=== PATIENT | male | born 1970 | race Caucasian/White ===

== ENCOUNTER 2018-01-07 07:47 | Inpatient (IN) | payer OTHER ==
[2018-01-07] VITALS (10 sets, daily range): BP systolic 102; BP diastolic 46; PULSE 52–79; RESP 20; TEMP 101.5; O2SAT 100
[~2018-01-07] VITALS: Ht 177.8 cm; Wt 75.6 kg
[2018-01-07] MEDS ORDERED: DIPHTH/TETANUS/ACEL PERTUSSIS (BOOSTER) 0.5 ML VIAL/PFS IM ONE (07:55)
[2018-01-07] MEDS ORDERED: ceFAZolin 2 GM PREMIX 50 ML ONE (07:55)
[2018-01-07] MEDS ORDERED: PROPOFOL 1000 MG/100 ML INJ 100 ML ONE (08:03)
[2018-01-07] MEDS ORDERED: ROCURONIUM INJ 50 MG/5 ML VIAL ONE ×2 (08:19→10:40)
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
[2018-01-07 08:36] LABS: AUTOMATED NEUTROPHIL # 3.6 TH/MM3 (1.8-7.7); BASOPHIL % 0.3 % (0.0-2.0); EOSINOPHIL # 0.1 TH/MM3 (0-0.4); EOSINOPHIL % 1.1 % (0.0-4.0); HEMOGLOBIN 13.9 GM/DL (13.0-17.0); INTERNATIONAL NORMALIZED RATIO 1.1 RATIO; LYMPH % 23.5 % (9.0-44.0); LYMPHOCYTE # 1.3 TH/MM3 (1.0-4.8); MEAN CELL VOLUME 99.7 FL (80.0-100.0); MEAN CORPUSCULAR HEMOGLOBIN 33.8 PG (27.0-34.0); MEAN CORPUSCULAR HGB CONC 33.9 % (32.0-36.0); MEAN PLATELET VOLUME 10.3 FL (7.0-11.0); MONO % 10.2 % (0.0-8.0); MONOCYTE # 0.6 TH/MM3 (0-0.9); NEUT % 64.9 % (16.0-70.0); PLATELET COUNT 107 TH/MM3 (150-450); PROTHROMBIN TIME - PATIENT 11.3 SEC (9.8-11.6); RED BLOOD COUNT 4.11 MIL/MM3 (4.50-5.90); RED CELL DISTRIBUTION WIDTH 14.1 % (11.6-17.2); WHITE BLOOD COUNT 5.5 TH/MM3 (4.0-11.0)
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
--- NOTE | 2018-01-07 08:44 | RADRPT ---
EXAM DATE/TIME: 01/07/2018 07:47 [facility] COMPARISON: CHEST SINGLE AP, January 07, 2018, 7:47. INDICATIONS : Post intubation. MEDICAL HISTORY : None. SURGICAL HISTORY : None. ENCOUNTER: Initial ACUITY: 1 day PAIN SCORE: Non-responsive. LOCATION: Bilateral chest FINDINGS: Patient has been intubated with ETT at the level of clavicles. Previously noted lucency in the left l tasha base is no longer visualized. Cardiomediastinal contours are within normal limits given portable technique. Moderate gaseous distention of the stomach. Remainder of exam is unchanged. CONCLUSION: 1. ETT in good position. 2. Resolution of lucency in the left lung base consistent with artifact. 3. Moderate gaseous distention of the stomach. Patient may benefit from NG tube decompression. Saroj Carrillo MD on January 07, 2018 at 8:38 Board Certified Radiologist. This report was verified electronically.
[2018-01-07] MEDS ORDERED: IOHEXOL 350 MG/ML 10 ML VIAL (for RAD DIAG) IVCONTRAST ONE (08:49)
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
[2018-01-07] MEDS: PROPOFOL 1000 MG/100 ML IV PRN ×3 (09:30→20:12)
[2018-01-07] MEDS ORDERED: LIDOCAINE 1%/EPINEPHrine 1:100,000 SOLN 30 ML VIAL ONE (09:58)
[2018-01-07] MEDS: NOREPINEPHRINE 4 MG/D5W 250 ML IV PRN ×2 (10:00→20:12)
[2018-01-07] MEDS: fentaNYL 2,500 MCG/NS 250 ML IV PRN (10:00)
[2018-01-07] MEDS ORDERED: NOREPINEPHRINE-DEXTROSE DRIP 0 ML IV ONE (10:17)
[2018-01-07] MEDS ORDERED: CALCIUM GLUCONATE 10% 1 GM/10 ML VIAL ONE (10:29)
[2018-01-07 10:31] LABS: AUTOMATED NEUTROPHIL # 7.7 TH/MM3 (1.8-7.7); BASOPHIL % 0.4 % (0.0-2.0); EOSINOPHIL % 0.2 % (0.0-4.0); HEMATOCRIT 31.1 % (39.0-51.0); HEMOGLOBIN 10.9 GM/DL (13.0-17.0); LYMPH % 6.1 % (9.0-44.0); LYMPHOCYTE # 0.6 TH/MM3 (1.0-4.8); MEAN CELL VOLUME 98.4 FL (80.0-100.0); MEAN CORPUSCULAR HEMOGLOBIN 34.5 PG (27.0-34.0); MEAN PLATELET VOLUME 9.5 FL (7.0-11.0); MONO % 10.2 % (0.0-8.0); MONOCYTE # 0.9 TH/MM3 (0-0.9); NEUT % 83.1 % (16.0-70.0); PLATELET COUNT 72 TH/MM3 (150-450); RED BLOOD COUNT 3.16 MIL/MM3 (4.50-5.90); RED CELL DISTRIBUTION WIDTH 14.5 % (11.6-17.2); WHITE BLOOD COUNT 9.3 TH/MM3 (4.0-11.0)
[2018-01-07 10:44] LABS: INTERNATIONAL NORMALIZED RATIO 1.3 RATIO
[2018-01-07 10:47] LABS: ALBUMIN 2.2 GM/DL (3.4-5.0); BICARBONATE 24.4 MEQ/L (21.0-32.0); CALCIUM 6.6 MG/DL (8.5-10.1); CREATININE 0.61 MG/DL (0.60-1.30)
[2018-01-07 10:52] LABS: CALCIUM-PROTEIN CORRECTED 8.4 MG/DL (8.5-10.1); TOTAL BILIRUBIN ADULT 0.4 MG/DL (0.2-1.0); TOTAL PROTEIN 3.8 GM/DL (6.4-8.2)
[2018-01-07] MEDS ORDERED: SODIUM CHLOR 0.9% 1000 ML INJ 3,000 ML IV STA (11:00)
--- NOTE | 2018-01-07 11:08 | RADRPT ---
EXAM DATE/TIME: 01/07/2018 10:27 [facility] COMPARISON: CHEST SINGLE AP, January 07, 2018, 7:47. INDICATIONS : Post intubation. MEDICAL HISTORY : None. SURGICAL HISTORY : None. ENCOUNTER: Initial ACUITY: 1 day PAIN SCORE: Non-responsive. LOCATION: Bilateral chest FINDINGS: A single portable frontal view of the chest shows interval intubation. The tip of the endotracheal tu be is 3 cm cephalad to the elieser. Nasogastric tube is coiled in the fundus of the stomach. A left th oracostomy tube is observed entering inferiorly and coursing cephalad and medial. The tip projects at the superior left hilar level. No pneumothorax seen on the current study. Minimal atelectasis within the left base. Heart is normal in size. A metallic density projects over the midline. Its is a new f inding. CONCLUSION: Lines and tubes as detailed above. No pneumothorax. Mansoor Elmore Jr., MD on January 07, 2018 at 11:03 Board Certified Radiologist. This report was verified electronically.
[2018-01-07] MEDS ORDERED: NOREPINEPHRINE-DEXTROSE DRIP 250 ML IV ONE ×2 (11:25→12:59)
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
[2018-01-07] MEDS ORDERED: SODIUM CHLOR 0.9% 250 ML INJ 250 ML IV ONE ×2 (12:00→16:00)
[2018-01-07] MEDS ORDERED: PROPOFOL 500 MG/50 ML INJ 50 ML ONE (12:30)
[2018-01-07] MEDS ORDERED: ROCURONIUM INJ 50 MG/5 ML VIAL IV ONE (12:45)
[2018-01-07] MEDS ORDERED: fentaNYL CITRATE 250 MCG/5 ML AMP IV ONE (12:45)
[2018-01-07] MEDS ORDERED: CALCIUM CHLORIDE INJ 1 GM in SODIUM CHLORIDE 0.9% INJ 100 ML IV ONE (13:00)
[2018-01-07] MEDS ORDERED: CALCIUM CHLORIDE 10% SOLN 1 GRAM/10 ML SYR ONE ×2 (13:02)
[2018-01-07] MEDS ORDERED: MAGNESIUM SULFATE 1 GM PREMIX 200 ML ONE (13:32)
[2018-01-07] MEDS: SODIUM CHLOR 0.9% 1000 ML INJ 1,000 ML IV SCH ×2 (14:00→17:00)
[2018-01-07 14:03] LABS: HEMATOCRIT 29.2 % (39.0-51.0); MEAN CELL VOLUME 94.1 FL (80.0-100.0); MEAN CORPUSCULAR HEMOGLOBIN 32.2 PG (27.0-34.0); MEAN CORPUSCULAR HGB CONC 34.2 % (32.0-36.0); MEAN PLATELET VOLUME 8.9 FL (7.0-11.0); PLATELET COUNT 51 TH/MM3 (150-450); RED CELL DISTRIBUTION WIDTH 16.2 % (11.6-17.2); WHITE BLOOD COUNT 8.6 TH/MM3 (4.0-11.0)
[2018-01-07 14:19] LABS: INTERNATIONAL NORMALIZED RATIO 1.3 RATIO; PROTHROMBIN TIME - PATIENT 12.7 SEC (9.8-11.6)
[2018-01-07 14:28] LABS: BICARBONATE 24.8 MEQ/L (21.0-32.0); CALCIUM 9.7 MG/DL (8.5-10.1); CREATININE 0.72 MG/DL (0.60-1.30)
[2018-01-07] MEDS ORDERED: RASS Change Order XX ONE (14:30)
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
[2018-01-07] MEDS: ACETAMINOPHEN 1000 MG/100 ML 100 ML IV PRN (18:50)
[2018-01-07] MEDS ORDERED: POTASSIUM PHOSPHATE MONOBASIC 500 MG TAB PO/TUBE PRN (19:00)
[2018-01-07] MEDS ORDERED: MISCELLANEOUS NURSING INFORMATION XX SCH (19:00)
[2018-01-07] MEDS ORDERED: RESP: ALBUTEROL 2.5 MG/IPRATROPIUM 0.5 MG NEB (PRN) NEB (19:00)
[2018-01-07] MEDS ORDERED: ENALAPRILAT 1.25 MG/ML VIAL IV PUSH PRN (19:00)
[2018-01-07] MEDS ORDERED: POTASSIUM CHLOR 20 MEQ PREMIX 100 ML IV PRN ×2 (19:00)
[2018-01-07] MEDS ORDERED: POTASSIUM CHLORIDE 20 MEQ PWD PACKET PO PRN (19:00)
[2018-01-07] MEDS ORDERED: SODIUM PHOSPHATE INJ 30 MMOL in SODIUM CHLOR 0.9% 250 ML INJ 240 ML IV PRN (19:00)
[2018-01-07] MEDS ORDERED: NOREPINEPHRINE INJ 4 MG in SODIUM CHLOR 0.9% 250 ML INJ 246 ML IV PRN (19:00)
[2018-01-07] MEDS ORDERED: POTASSIUM PHOSPHATE INJ 30 MMOL in SODIUM CHLOR 0.9% 250 ML INJ 250 ML IV PRN (19:00)
[2018-01-07] MEDS ORDERED: MAGNESIUM OXIDE 400 MG TAB PO PRN (19:00)
[2018-01-07] MEDS ORDERED: MAGNESIUM SULFATE INJ 4 GM in SODIUM CHLORIDE 0.9% INJ 92 ML IV PRN (19:00)
[2018-01-07] MEDS ORDERED: POTASSIUM PHOSPHATE MONOBASIC 500 MG TAB PO PRN (19:00)
[2018-01-07] MEDS ORDERED: TERBUTALINE INJ 1 MG/ML AMP SQ PRN (19:00)
[2018-01-07] MEDS ORDERED: BISACODYL 10 MG SUPP RECTAL PRN (19:00)
[2018-01-07] MEDS ORDERED: CHLORHEXIDINE GLUCONATE 2 % 1 PACK (2 CLOTHS) TOP PRN (19:00)
[2018-01-07] MEDS ORDERED: MAGNESIUM SULFATE INJ 2 GM in SODIUM CHLORIDE 0.9% INJ 96 ML IV PRN (19:00)
[2018-01-07] MEDS ORDERED: POTASSIUM CHLOR 40 MEQ PREMIX 100 ML IV PRN ×2 (19:00)
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
--- NOTE | 2018-01-07 20:31 | PD.PROCEDR ---
Procedure Note Procedure Procedure: Arterial Line Placement Left radial arterial line Diagnosis: Hemorrhagic shock Indications: Need for serial arterial blood gas sampling Consent: Emergent Description of the Procedure: The left wrist was prepped and draped sterilely. 1% lidocaine was used for local anesthesia. The pulse was located and a needle was advanced into the artery. A 20 gauge, 12 cm catheter was advanced into the artery using a modified Seldinger technique. The catheter was sutured to the skin and a sterile dressing was applied. The catheter was connected to a pressure transducer and an arterial waveform was noted. There were no immediate complications noted. There was minimal EBL. I personally performed the procedure. Nick Mayer MD Jan 07, 2018 20:31
[2018-01-07] MEDS: DOCUSATE SODIUM 50 MG/SENNA 8.6 MG TAB PO SCH (21:00)
[2018-01-07] MEDS: PANTOPRAZOLE SODIUM 40 MG VIAL IVP SCH (21:00)
[2018-01-07] MEDS: CHLORHEXIDINE 0.12% (ORAL KIT) 15 ML CUP MT SCH (21:05)
[2018-01-07] MEDS: BACITRACIN TOP OINT 15 GM TUBE TOP SCH (21:09)
[2018-01-07] MEDS: GENTAMICIN 80 MG PREMIX 100 ML IV SCH (21:21)
[2018-01-07] MEDS: RESP: ALBUTEROL 2.5 MG/IPRATROPIUM 0.5 MG NEB (SCH) NEB (21:27)
[2018-01-07] MEDS ORDERED: MIDAZOLAM 100 MG/100 ML INJ 100 ML IV PRN (22:00)
[2018-01-07 22:35] LABS: HEMATOCRIT 26.1 % (39.0-51.0); HEMOGLOBIN 9.6 GM/DL (13.0-17.0)
[2018-01-08] VITALS (21 sets, daily range): BP systolic 108–133; BP diastolic 48–58; PULSE 64–103; RESP 16–20; TEMP 97.9–100.4; O2SAT 91–100
[2018-01-08] MEDS: PROPOFOL 1000 MG/100 ML IV PRN ×2 (00:27→06:25)
[2018-01-08 02:48] LABS: HEMATOCRIT 25.5 % (39.0-51.0); HEMOGLOBIN 9.2 GM/DL (13.0-17.0)
[2018-01-08] MEDS: NOREPINEPHRINE 4 MG/D5W 250 ML IV PRN ×2 (03:34→19:33)
[2018-01-08] MEDS: RESP: ALBUTEROL 2.5 MG/IPRATROPIUM 0.5 MG NEB (SCH) NEB ×4 (03:46→21:16)
[2018-01-08 05:00] LABS: AUTOMATED NEUTROPHIL # 5.4 TH/MM3 (1.8-7.7); BASOPHIL % 0.1 % (0.0-2.0); EOSINOPHIL % 0.2 % (0.0-4.0); HEMATOCRIT 25.5 % (39.0-51.0); HEMOGLOBIN 9.3 GM/DL (13.0-17.0); LYMPH % 15.9 % (9.0-44.0); LYMPHOCYTE # 1.2 TH/MM3 (1.0-4.8); MEAN CELL VOLUME 89.5 FL (80.0-100.0); MEAN CORPUSCULAR HEMOGLOBIN 32.7 PG (27.0-34.0); MEAN PLATELET VOLUME 8.6 FL (7.0-11.0); MONO % 11.6 % (0.0-8.0); MONOCYTE # 0.9 TH/MM3 (0-0.9); NEUT % 72.2 % (16.0-70.0); PLATELET COUNT 162 TH/MM3 (150-450); RED BLOOD COUNT 2.85 MIL/MM3 (4.50-5.90); RED CELL DISTRIBUTION WIDTH 16.2 % (11.6-17.2); WHITE BLOOD COUNT 7.5 TH/MM3 (4.0-11.0)
[2018-01-08] MEDS: CHLORHEXIDINE GLUCONATE 2 % 1 PACK (2 CLOTHS) TOP SCH (05:01)
[2018-01-08] MEDS: GENTAMICIN 80 MG PREMIX 100 ML IV SCH ×3 (05:02→22:55)
[2018-01-08] MEDS: fentaNYL 2,500 MCG/NS 250 ML IV PRN (05:02)
[2018-01-08 05:04] LABS: MEAN CORPUSCULAR HGB CONC 36.6 % (32.0-36.0)
[2018-01-08 05:10] LABS: INTERNATIONAL NORMALIZED RATIO 1.3 RATIO; PROTHROMBIN TIME - PATIENT 13.2 SEC (9.8-11.6)
[2018-01-08 05:28] LABS: BICARBONATE 21.1 MEQ/L (21.0-32.0); CALCIUM 7.4 MG/DL (8.5-10.1); CREATININE 0.83 MG/DL (0.60-1.30); MAGNESIUM 1.5 MG/DL (1.5-2.5)
--- NOTE | 2018-01-08 05:40 | RADRPT ---
EXAM DATE/TIME: 01/08/2018 05:11 [facility] COMPARISON: CHEST SINGLE AP, January 07, 2018, 11:08. INDICATIONS : Shortness of breath. MEDICAL HISTORY : Non-responsive SURGICAL HISTORY : Non-responsive ENCOUNTER: Subsequent ACUITY: 2 days PAIN SCORE: Non-responsive. LOCATION: Bilateral chest FINDINGS: Portable AP view of the chest demonstrates a normal-sized cardiac silhouette. ETT, NG tube, and left subclavian central line remain present. Left chest tube is in place. No pneumothorax is seen. No effu macie or airspace consolidation is seen either. EKG lines overlie the patient. CONCLUSION: Stable chest x-ray. No pneumothorax or acute pulmonary abnormality is seen. Esequiel García MD on January 08, 2018 at 5:37 Board Certified Radiologist. This report was verified electronically.
[2018-01-08 05:48] LABS: TOTAL PROTEIN 4.3 GM/DL (6.4-8.2)
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
[2018-01-08] MEDS ORDERED: LACTATED RINGER'S 1000 ML INJ 1,000 ML IV ONE ×2 (07:45→10:45)
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
[2018-01-08] MEDS: CHLORHEXIDINE 0.12% (ORAL KIT) 15 ML CUP MT SCH ×2 (08:39→20:00)
[2018-01-08] MEDS: LACTULOSE SYRUP 20 GM/30 ML CUP PO SCH (09:00)
[2018-01-08] MEDS: DOCUSATE SODIUM 50 MG/SENNA 8.6 MG TAB PO SCH ×2 (09:00→21:00)
[2018-01-08] MEDS: BACITRACIN TOP OINT 15 GM TUBE TOP SCH ×2 (09:24→21:00)
[2018-01-08] MEDS: LACTATED RINGER'S 1000 ML INJ 1,000 ML IV SCH ×2 (09:24→17:45)
[2018-01-08] MEDS ORDERED: VANCOMYCIN HCL 1000 MG VIAL ONE (10:08)
[2018-01-08] MEDS ORDERED: GENTAMICIN SULFATE 80 MG/2 ML VIAL ONE (10:08)
[2018-01-08] MEDS ORDERED: ceFAZolin 2 GM PREMIX 50 ML ONE (10:09)
[2018-01-08] MEDS ORDERED: BUPIVACAINE/EPINEPHRINE 0.25% 50 ML VIAL ONE (10:09)
[2018-01-08] MEDS ORDERED: PHENYLEPH/NS 1000 MCG/10 ML SYR IV ONE (12:00)
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
[2018-01-08] MEDS ORDERED: IOHEXOL 350 MG/ML 10 ML VIAL (for RAD DIAG) IVCONTRAST ONE (14:50)
--- NOTE | 2018-01-08 14:50 | ECHRPT ---
Indication: CHEST PAIN CONCLUSIONS Normal left ventricular size. Wall thickness is normal. The left ventricular systolic function is normal with an estimated ejection fraction in the range of 60-65%. There is trace tricuspid valve regurgitation. BP: 121 / 53 HR: 77 Rhythm: MEASUREMENTS (Male / Female) Normal Values Technical Quality:Good 2D ECHO LV Diastolic Diameter PLAX 4.9 cm 4.2 - 5.9 / 3.9 - 5.3 cm LV Systolic Diameter PLAX 3.1 cm IVS Diastolic Thickness 1.2 cm 0.6 - 1.0 / 0.6 - 0.9 cm LVPW Diastolic Thickness 1.1 cm 0.6 - 1.0 / 0.6 - 0.9 cm LV Relative Wall Thickness 0.5 RV Internal Dim ED PLAX 3.3 cm LA Systolic Diameter LX 3.6 cm 3.0 - 4.0 / 2.7 - 3.8 cm M-MODE Aortic Root Diameter MM 2.9 cm LA Systolic Diameter MM 3.7 cm LA Ao Ratio MM 1.3 AV Cusp Separation MM 1.8 cm DOPPLER AV Peak Velocity 176.0 cm/s AV Peak Gradient 12.4 mmHg LVOT Peak Velocity 139.0 cm/s LVOT Peak Gradient 7.7 mmHg MV Area PHT 2.2 cm Mitral E Point Velocity 62.7 cm/s Mitral A Point Velocity 80.0 cm/s Mitral E to A Ratio 0.8 LV E' Lateral Velocity 12.9 cm/s Mitral E to LV E' Lateral Ratio 4.9 LV E' Septal Velocity 8.3 cm/s Mitral E to LV E' Septal Ratio 7.6 TR Peak Velocity 300.0 cm/s TR Peak Gradient 36.0 mmHg Right Atrial Pressure 10.0 mmHg Pulmonary Artery Systolic Pressu 46.0 mmHg Right Ventricular Systolic Press 46.0 mmHg FINDINGS LEFT VENTRICLE Normal left ventricular size. Wall thickness is normal. The left ventricular systolic function is normal with an estimated ejection fraction in the range of 60-65%. RIGHT VENTRICLE Normal right ventricular size and systolic function. LEFT ATRIUM The left atrial size is normal. RIGHT ATRIUM The right atrial size is normal. ATRIAL SEPTUM Normal atrial septal thickness without atrial level shunting by limited color doppler interrogation. AORTA The aortic root and proximal ascending aorta are normal in size on limited imaging. MITRAL VALVE Structurally normal mitral valve. No mitral valve stenosis or regurgitation. AORTIC VALVE Trileaflet aortic valve. No aortic valve stenosis or regurgitation. TRICUSPID VALVE There is trace tricuspid valve regurgitation. PULMONARY VALVE No pulmonary valve regurgitation or stenosis. VESSELS The inferior vena cava is normal in size. PERICARDIUM No pericardial effusion. Sam Metcalf MD (Electronically Signed) Final Date:08 January 2018 14:49
--- NOTE | 2018-01-08 15:01 | EKG ---
Date Performed: 01/07/2018 Time Performed: 10:30:02 PTAGE: 47 years EKG: Sinus rhythm . Lead(s) unsuitable for analysis: V4 V5 V6 Left axis deviation Borderline ECG NO PREVIOUS TRACING DOCTOR: Dl Anders Interpretating Date/Time 01/08/2018 15:00:32
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
[2018-01-08] MEDS: ACETAMINOPHEN 1000 MG/100 ML 100 ML IV PRN (17:02)
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
[2018-01-08] MEDS ORDERED: MIDAZOLAM 100 MG/NS 100 ML DRIP Premix IV PRN (18:30)
[2018-01-08] MEDS ORDERED: RASS Change Order XX ONE (18:30)
[2018-01-08] MEDS ORDERED: ALBUMIN 5% INJ 500 ML IV ONE (18:45)
[2018-01-08] MEDS: PANTOPRAZOLE SODIUM 40 MG VIAL IVP SCH (22:55)
[2018-01-09] VITALS (13 sets, daily range): BP systolic 106–130; BP diastolic 42–55; PULSE 69–98; RESP 16; TEMP 99.5–101.7; O2SAT 93–100
[2018-01-09] MEDS: RESP: ALBUTEROL 2.5 MG/IPRATROPIUM 0.5 MG NEB (SCH) NEB ×4 (03:50→22:42)
[2018-01-09] MEDS: CHLORHEXIDINE GLUCONATE 2 % 1 PACK (2 CLOTHS) TOP SCH (04:00)
[2018-01-09] MEDS: GENTAMICIN 80 MG PREMIX 100 ML IV SCH ×3 (04:27→21:00)
[2018-01-09] MEDS: HEPARIN SODIUM - SQ 10,000 UNITS/ML VIAL SQ SCH ×4 (04:27→22:00)
[2018-01-09] MEDS: fentaNYL 2,500 MCG/NS 250 ML IV PRN ×2 (04:28→14:50)
[2018-01-09] MEDS: LACTATED RINGER'S 1000 ML INJ 1,000 ML IV SCH ×2 (04:30→13:45)
[2018-01-09] MEDS: ACETAMINOPHEN 1000 MG/100 ML 100 ML IV PRN (04:37)
[2018-01-09 04:52] LABS: AUTOMATED NEUTROPHIL # 4.8 TH/MM3 (1.8-7.7); BASOPHIL % 0.1 % (0.0-2.0); EOSINOPHIL # 0.1 TH/MM3 (0-0.4); EOSINOPHIL % 1.5 % (0.0-4.0); HEMATOCRIT 26.9 % (39.0-51.0); HEMOGLOBIN 9.6 GM/DL (13.0-17.0); LYMPH % 8.8 % (9.0-44.0); LYMPHOCYTE # 0.6 TH/MM3 (1.0-4.8); MEAN CELL VOLUME 88.2 FL (80.0-100.0); MEAN CORPUSCULAR HEMOGLOBIN 31.5 PG (27.0-34.0); MEAN CORPUSCULAR HGB CONC 35.8 % (32.0-36.0); MEAN PLATELET VOLUME 8.4 FL (7.0-11.0); MONO % 13.5 % (0.0-8.0); MONOCYTE # 0.9 TH/MM3 (0-0.9); NEUT % 76.1 % (16.0-70.0); PLATELET COUNT 108 TH/MM3 (150-450); RED BLOOD COUNT 3.05 MIL/MM3 (4.50-5.90); RED CELL DISTRIBUTION WIDTH 18.1 % (11.6-17.2); WHITE BLOOD COUNT 6.3 TH/MM3 (4.0-11.0)
[2018-01-09 05:11] LABS: BICARBONATE 27.5 MEQ/L (21.0-32.0); CALCIUM 7.4 MG/DL (8.5-10.1); CREATININE 0.64 MG/DL (0.60-1.30)
[2018-01-09 05:24] LABS: CALCIUM-PROTEIN CORRECTED 8.8 MG/DL (8.5-10.1); TOTAL PROTEIN 4.6 GM/DL (6.4-8.2)
--- NOTE | 2018-01-09 06:38 | RADRPT ---
EXAM DATE/TIME: 01/09/2018 04:56 [facility] COMPARISON: CHEST SINGLE AP, January 08, 2018, 5:11. INDICATIONS : Short of breath. MEDICAL HISTORY : None. SURGICAL HISTORY : None. ENCOUNTER: Subsequent ACUITY: 3 days PAIN SCORE: Non-responsive. LOCATION: Bilateral chest FINDINGS: Portable AP view of the chest demonstrates a normal-sized cardiac silhouette. ETT, left subclavian ce ntral line, and nasogastric tube remain present. Lungs are underinflated with mild airspace opacity a t the left lung base. The left chest tube remains present and no pneumothorax is seen. Bones demonstr ate no acute finding. CONCLUSION: 1. Mild opacity at the left lung base most likely representing atelectasis. 2. Left chest tube remains present and no pneumothorax is seen. Esequiel García MD on January 09, 2018 at 6:35 Board Certified Radiologist. This report was verified electronically.
[2018-01-09] MEDS ORDERED: LACTATED RINGER'S 1000 ML INJ 1,000 ML IV ONE (07:30)
[2018-01-09] MEDS: CHLORHEXIDINE 0.12% (ORAL KIT) 15 ML CUP MT SCH ×2 (08:00→17:09)
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
--- NOTE | 2018-01-09 08:23 | PD.ORT.PN ---
Subjective Subjective Remarks POD 1 s/p I&D with application of exfix to right wrist s/p disruption of pubic symphysis intubated/sedated Objective Vitals Vital Signs Date Time Temp Pulse Resp B/P (MAP) Pulse Ox O2 Delivery O2 Flow Rate FiO2 01/09/18 07:56 98 30 01/09/18 06:30 98/48 01/09/18 06:15 92/45 01/09/18 06:00 86 01/09/18 04:00 101.7 98 16 130/53 (78) 93 01/09/18 04:00 98 01/09/18 04:00 30 01/09/18 03:50 94 30 01/09/18 03:00 132/50 01/09/18 02:45 128/56 01/09/18 02:15 129/57 01/09/18 02:00 79 01/09/18 01:30 126/57 01/09/18 00:45 123/56 01/09/18 00:39 100 30 01/09/18 00:00 100.0 75 16 114/52 (72) 99 01/09/18 00:00 75 01/09/18 00:00 30 01/08/18 22:45 124/56 01/08/18 22:00 77 01/08/18 22:00 127/56 01/08/18 21:15 117/53 01/08/18 21:00 99.7 75 16 115/52 98 01/08/18 20:48 99.7 79 16 118/52 98 01/08/18 20:00 99.9 76 16 121/55 (77) 98 01/08/18 20:00 99.9 76 16 121/55 98 01/08/18 20:00 30 01/08/18 20:00 Mechanical Ventilator 01/08/18 20:00 87 01/08/18 19:42 99.9 81 16 118/49 96 01/08/18 19:33 82 108/46 01/08/18 18:00 87 01/08/18 16:08 94 30 01/08/18 16:00 103 01/08/18 16:00 100.4 101 16 113/58 (76) 94 01/08/18 16:00 30 01/08/18 15:14 92 30 01/08/18 15:14 100 3/7/18 14:00 86 01/08/18 13:19 92 30 01/08/18 13:00 100 01/08/18 13:00 97.9 83 16 133/57 (82) 91 01/08/18 10:00 77 01/08/18 08:43 98 30 I/O 01/08/18 01/08/18 01/08/18 01/09/18 01/09/18 01/09/18 07:00 15:00 23:00 07:00 15:00 23:00 Intake Total 3050 ml 2325 ml Output Total 1734 ml 325 ml 1905 ml 2635 ml Balance -1734 ml 2725 ml 420 ml -2635 ml Intake IV Total 2250 ml 1175 ml Packed Cells 650 ml Blood Product IV Normal Saline Flush 500 ml Other 800 ml Output Urine Total 1225 ml 300 ml 1625 ml 2330 ml Gastric Drainage Total 425 ml 250 ml 225 ml Chest Tube Drainage Total 84 ml 30 ml 80 ml Estimated Blood Loss 25 ml Result Diagram: 01/09/18 0430 01/09/18 0430 Imaging Last 24 hours Impressions Chest X-Ray 01/08/18 0600 Signed Impressions: Service Date/Time: Monday, January 08, 2018 05:11 - CONCLUSION: Stable chest x-ray. No pneumothorax or acute pulmonary abnormality is seen. Esequiel García MD Pelvis X-Ray 01/07/18750 Signed Impressions: Service Date/Time: Sunday, January 07, 2018 07:47 - CONCLUSION: 1. Diastasis of the pubic symphysis with widened left SI joint. 2. Questionable subtle nondisplaced fractures of the right inferior pubic ramus and lesser trochanter of the right femur. Saroj Carrillo MD Maxillofacial CT 01/07/18750 Signed Impressions: Service Date/Time: Sunday, January 07, 2018 08:24 - CONCLUSION: Multiple severely comminuted facial fractures as described above. Lencho Dominguez MD Head CT 01/07/18750 Signed Impressions: Service Date/Time: Sunday, January 07, 2018 08:24 - CONCLUSION: 1. No focal or acute intracranial hemorrhage. 2. Multiple comminuted facial fractures. Lencho Dominguez MD Chest X-Ray 01/07/18750 Signed Impressions: Service Date/Time: Sunday, January 07, 2018 07:47 - CONCLUSION: 1. Increased lucency near the left lung base, likely artifactual, although a small left subpulmonic pneumothorax cannot be entirely excluded. Saroj Carrillo MD Chest CT 01/07/18750 Signed Impressions: Service Date/Time: Sunday, January 07, 2018 08:24 - CONCLUSION: 1. Minimal bibasilar airspace disease, more prominently on the right. Differential considerations include pulmonary contusions versus atelectasis. 2. Subtle cortical step-off in the inferior scapula. Suspect this reflects an old injury. Correlation with physical exam and history is recommended. Saroj Carrillo MD Cervical Spine CT 01/07/18750 Signed Impressions: Service Date/Time: Sunday, January 07, 2018 08:24 - CONCLUSION: 1. No acute fracture or subluxation. Saroj Carrillo MD Abdomen/Pelvis CT 01/07/18750 Signed Impressions: Service Date/Time: Sunday, January 07, 2018 08:24 - CONCLUSION: 1. Small focal nonspecific defect in the superior lateral spleen. This may just be flow artifact. Small splenic laceration would be a second possibility. However, there is no fluid surrounding the spleen and there is no fluid in the abdomen or pelvic. 2. There is some diastases of the pubic symphysis. There is a fracture involving the anterior portion of the right acetabulum with the fracture line extending into the right ischium. There is also a fracture involving the right inferior pubic ramus. 3. There is a hematoma along the anterior lateral aspect of urinary bladder which is most likely related to the pelvic fractures. Lencho Dominguez MD Objective Remarks Right upper extremity: exfix in place. pin sites clean. no drainage. good cap refill Left upper extremity: No laxity with shoulder elbow or wrist. Distally capillary refills and good distal pulses Bilateral lower extremities: No laxity with hip knee or ankles bilaterally. Distally intact distal pulses. Assessment & Plan Assessment and Plan Severely comminuted right distal radius open fracture with dislocation of distal radial ulnar joint s/p I&d and application of exfix - POD 1 s/p disruption of pubic symphysis s/p right elbow injury Maintain exfix pin care BID plan for further surgical intervention next week for wrist and possibly pubic symphysis Andry Marquez/First Vickie SPARKS Jan 09, 2018 08:23
[2018-01-09] MEDS: DOCUSATE SODIUM 50 MG/SENNA 8.6 MG TAB PO SCH ×2 (08:56→21:00)
[2018-01-09] MEDS: LACTULOSE SYRUP 20 GM/30 ML CUP PO SCH (08:56)
[2018-01-09] MEDS: BACITRACIN TOP OINT 15 GM TUBE TOP SCH ×2 (08:56→21:00)
[2018-01-09] MEDS: PROPOFOL 1000 MG/100 ML IV PRN (10:00)
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
[2018-01-09] MEDS ORDERED: PHENYLEPH/NS 1000 MCG/10 ML SYR IV ONE (12:00)
[2018-01-09] MEDS ORDERED: LACTATED RINGER'S 1000 ML INJ 2,000 ML IV ONE (12:00)
[2018-01-09] MEDS ORDERED: DEXAMETHASONE SOD PHOS 4 MG/ML VIAL IV ONE (12:00)
[2018-01-09] MEDS ORDERED: VECURONIUM BROMIDE 20 MG VIAL IV ONE (12:00)
[2018-01-09] MEDS ORDERED: SODIUM CHLOR 0.9% 250 ML INJ 250 ML IV ONE (12:00)
[2018-01-09] MEDS ORDERED: ceFAZolin INJ 1,000 MG VIAL IV ONE (12:00)
[2018-01-09] MEDS ORDERED: ePHEDrine/NS 25 MG/5 ML SYRINGE IV ONE (12:00)
[2018-01-09] MEDS ORDERED: ROCURONIUM INJ 50 MG/5 ML SYRINGE IV PUSH ONE (12:00)
[2018-01-09] MEDS ORDERED: LIDOCAINE 2%/EPINEPHrine PF 1:200,000 20ML SDV ONE (14:38)
[2018-01-09] MEDS ORDERED: BALANCED SALT SOLN OPHT IRRIG 15 ML BTL ONE ×2 (14:38→20:52)
[2018-01-09] MEDS ORDERED: CHLORHEXIDINE GLUCONATE 0.12% 15 ML CUP ONE (14:38)
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
[2018-01-09] MEDS ORDERED: MICROFIBRILLAR COLLAGEN HEMOSTAT 1 GM PKT ONE (14:48)
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
--- NOTE | 2018-01-09 16:50 | GIPROC ---
[facility] [address] [facility]. [facility], [address] EGD WITH PEG PROCEDURE REPORT EXAM DATE: 01/09/2018 PATIENT NAME: Kevin Arroyo MR#: [id number] BIRTHDATE: 1970 ATTENDING: Amber Fitzgerald MD ORDER #: [id number] FREIGHT CAR REPAIRER: Mikayla Patterson and Agueda Marinelli STATUS: inpatient INDICATIONS: The patient is a 47 yr old male here for an EGD with PEG due to placement of PEG PROCEDURE PERFORMED: EGD, diagnostic MEDICATIONS: None and Per Anesthesia. TOPICAL ANESTHETIC: none CONSENT: The patient understands the risks and benefits of the procedure and understands that these risks include, but are not limited to: sedation, allergic reaction, infection, perforation and/or bleeding. Alternative means of evaluation and treatment include, among others: physical exam, x-rays, and/or surgical intervention. The patient elects to proceed with this endoscopic procedure. medical equipment was checked for proper function. Hand hygiene and appropriate measures for infection prevention was taken. After the risks, benefits and alternatives of the procedure were thoroughly explained, Informed consent was verified, confirmed and timeout was successfully executed by the treatment team. The patient was anesthetized with topical anesthesia and the Pentax [id number] endoscope was introduced through the mouth and advanced to the second portion of the duodenum. The instrument was slowly withdrawn as the mucosa was fully examined. An ulcer was found in the body of the stomach. linear and superficial , no signs of active or recent bleeding. The stomach was then inflated with air, and by a combination of transillumination and manual palpation, the site for the gastrostomy tube placement was selected and marked on the anterior abdominal wall. The skin of the anterior abdomen was surgically prepped and draped with sterile towels. the scope was introduced and after several failed attempts to identify the light the procedure was aborted to be done by interventional. no The gastroscope was then slowly withdrawn and removed. ADVERSE EVENT: There were no complications. IMPRESSIONS: 1. An ulcer was found in the body of the stomach 2. PEG tube not placed, failed transilumination RECOMMENDATIONS: Continue PPI, IR for percutanous approach. REPEAT EXAM: procedure as needed Amber Fitzgerald MD eSigned: Amber Fitzgerald MD 01/09/2018 4:49 PM cc:
[2018-01-09] MEDS ORDERED: GELATIN 12 MM/7 MM FOAM ONE (17:54)
[2018-01-09] MEDS ORDERED: THROMBIN (TOPICAL) 5,000 UNIT VIAL ONE (17:54)
[2018-01-09] MEDS: PANTOPRAZOLE SODIUM 40 MG VIAL IVP SCH (21:00)
[2018-01-09] MEDS ORDERED: GENTAMICIN SULFATE 80 MG/2 ML VIAL ONE ×2 (21:44→21:45)
[2018-01-09] MEDS ORDERED: PROPOFOL 500 MG/50 ML INJ 50 ML ONE (21:52)
--- NOTE | 2018-01-09 23:02 | HHI.PR ---
Immediate Post Op Note Procedure Date: Jan 09, 2018 Pre Op Diagnosis: lefort 2 maxillary fracture mandible symphysis fracture right orbital floor fracture nasal bone fracture loose/avulsed teeth 04/11///09/15 complex chin lacerations x 2 - 6cm/2.5cm Post Op Diagnosis: Surgeon: Warren Mora Bevel Face Stoner And Polisher(s): flaco morales norberto Procedure: orif lefort 2 maxillary fracture orif mandible symphysis fracture reconstruction of right orbital floor fracture closed reduction nasal bone fracture extraction of teeth # 04/11//08/14/12 bone graft maxillary alveolus closure of chin laceration x 2 Complications: none Estimated blood loss: 200cc Anesthesia: General, Local (2%lidocaine with 1:200,000 epi, 15cc) Drains: None Patient to: ISC Patient Condition: Fair Date/Time of Procedure: SEE SURGICAL CARE RECORD Warren Mora DMD Jan 09, 2018 23:02
[2018-01-10] VITALS (18 sets, daily range): BP systolic 109–157; BP diastolic 55–83; PULSE 65–86; RESP 9–25; TEMP 98.4–99.7; O2SAT 94–100
[2018-01-10] MEDS: PROPOFOL 1000 MG/100 ML IV PRN ×2 (00:23→04:33)
[2018-01-10] MEDS: methylPREDNISolone SOD SUCC 125 MG/2 ML VIAL IV SCH ×3 (00:23→12:00)
[2018-01-10] MEDS: RESP: ALBUTEROL 2.5 MG/IPRATROPIUM 0.5 MG NEB (SCH) NEB ×4 (03:06→19:51)
[2018-01-10] MEDS: CHLORHEXIDINE GLUCONATE 2 % 1 PACK (2 CLOTHS) TOP SCH (04:00)
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
[2018-01-10] MEDS: fentaNYL 2,500 MCG/NS 250 ML IV PRN ×2 (04:34→17:45)
[2018-01-10] MEDS: LACTATED RINGER'S 1000 ML INJ 1,000 ML IV SCH ×3 (04:36→16:27)
[2018-01-10] MEDS: GENTAMICIN 80 MG PREMIX 100 ML IV SCH ×3 (05:23→21:28)
[2018-01-10 05:52] LABS: AUTOMATED NEUTROPHIL # 5.2 TH/MM3 (1.8-7.7); BASOPHIL % 0.1 % (0.0-2.0); HEMATOCRIT 25.2 % (39.0-51.0); LYMPH % 2.6 % (9.0-44.0); LYMPHOCYTE # 0.1 TH/MM3 (1.0-4.8); MEAN CELL VOLUME 89.8 FL (80.0-100.0); MEAN CORPUSCULAR HEMOGLOBIN 32.1 PG (27.0-34.0); MEAN CORPUSCULAR HGB CONC 35.7 % (32.0-36.0); MEAN PLATELET VOLUME 8.7 FL (7.0-11.0); MONO % 4.8 % (0.0-8.0); MONOCYTE # 0.3 TH/MM3 (0-0.9); NEUT % 92.5 % (16.0-70.0); PLATELET COUNT 91 TH/MM3 (150-450); RED BLOOD COUNT 2.81 MIL/MM3 (4.50-5.90); RED CELL DISTRIBUTION WIDTH 17.7 % (11.6-17.2); WHITE BLOOD COUNT 5.6 TH/MM3 (4.0-11.0)
[2018-01-10] MEDS: HEPARIN SODIUM - SQ 10,000 UNITS/ML VIAL SQ SCH ×3 (06:00→22:00)
[2018-01-10 06:09] LABS: BICARBONATE 28.9 MEQ/L (21.0-32.0); CALCIUM 7.8 MG/DL (8.5-10.1); CREATININE 0.72 MG/DL (0.60-1.30)
[2018-01-10] MEDS: CHLORHEXIDINE 0.12% (ORAL KIT) 15 ML CUP MT SCH ×2 (08:00→20:00)
[2018-01-10] MEDS: DOCUSATE SODIUM 50 MG/SENNA 8.6 MG TAB PO SCH ×2 (08:19→20:51)
[2018-01-10] MEDS: BACITRACIN TOP OINT 15 GM TUBE TOP SCH ×2 (08:19→20:51)
[2018-01-10] MEDS: LACTULOSE SYRUP 20 GM/30 ML CUP PO SCH (08:19)
--- NOTE | 2018-01-10 09:07 | PD.ORT.PN ---
Subjective Subjective Remarks POD 2 s/p I&D with application of exfix to right wrist s/p disruption of pubic symphysis intubated/sedated Objective Vitals Vital Signs Date Time Temp Pulse Resp B/P (MAP) Pulse Ox O2 Delivery O2 Flow Rate FiO2 01/10/18 07:58 35 01/10/18 07:58 96 35 01/10/18 07:00 100 Mechanical Ventilator 30 01/10/18 06:00 66 01/10/18 04:10 98 30 01/10/18 04:00 30 01/10/18 04:00 99.3 66 16 109/58 (75) 100 01/10/18 04:00 66 01/10/18 04:00 66 01/10/18 02:00 66 01/10/18 01:08 100 30 01/10/18 00:00 99.3 66 16 109/55 (73) 98 01/10/18 00:00 65 01/10/18 00:00 30 01/09/18 22:42 100 50 01/09/18 14:00 87 01/09/18 12:00 30 01/09/18 12:00 76 01/09/18 12:00 100.4 76 16 106/42 (63) 100 01/09/18 11:22 94 30 01/09/18 10:00 80 I/O 01/09/18 01/09/18 01/09/18 01/10/18 01/10/18 01/10/18 07:00 15:00 23:00 07:00 15:00 23:00 Intake Total 250 ml 200 ml 2700 ml Output Total 2635 ml 3350 ml Balance -2635 ml 250 ml 200 ml -650 ml Intake Oral 0 ml IV Total 250 ml 200 ml 200 ml Other 2500 ml Output Urine Total 2330 ml 3050 ml Gastric Drainage Total 225 ml Chest Tube Drainage Total 80 ml 100 ml Estimated Blood Loss 200 ml Result Diagram: 01/10/1843901/10/18 044 Imaging Last 24 hours Impressions Chest X-Ray 01/08/18 0600 Signed Impressions: Service Date/Time: Monday, January 08, 2018 05:11 - CONCLUSION: Stable chest x-ray. No pneumothorax or acute pulmonary abnormality is seen. Esequiel García MD Pelvis X-Ray 3/6/18 0751 Signed Impressions: Service Date/Time: Sunday, January 07, 2018 07:47 - CONCLUSION: 1. Diastasis of the pubic symphysis with widened left SI joint. 2. Questionable subtle nondisplaced fractures of the right inferior pubic ramus and lesser trochanter of the right femur. Saroj Carrillo MD Maxillofacial CT 01/07/18750 Signed Impressions: Service Date/Time: Sunday, January 07, 2018 08:24 - CONCLUSION: Multiple severely comminuted facial fractures as described above. Lencho Dominguez MD Head CT 01/07/18750 Signed Impressions: Service Date/Time: Sunday, January 07, 2018 08:24 - CONCLUSION: 1. No focal or acute intracranial hemorrhage. 2. Multiple comminuted facial fractures. Lencho Dominguez MD Chest X-Ray 01/07/18750 Signed Impressions: Service Date/Time: Sunday, January 07, 2018 07:47 - CONCLUSION: 1. Increased lucency near the left lung base, likely artifactual, although a small left subpulmonic pneumothorax cannot be entirely excluded. Saroj Carrillo MD Chest CT 01/07/18750 Signed Impressions: Service Date/Time: Sunday, January 07, 2018 08:24 - CONCLUSION: 1. Minimal bibasilar airspace disease, more prominently on the right. Differential considerations include pulmonary contusions versus atelectasis. 2. Subtle cortical step-off in the inferior scapula. Suspect this reflects an old injury. Correlation with physical exam and history is recommended. Saroj Carrillo MD Cervical Spine CT 01/07/18750 Signed Impressions: Service Date/Time: Sunday, January 07, 2018 08:24 - CONCLUSION: 1. No acute fracture or subluxation. Saroj Carrillo MD Abdomen/Pelvis CT 01/07/18750 Signed Impressions: Service Date/Time: Sunday, January 07, 2018 08:24 - CONCLUSION: 1. Small focal nonspecific defect in the superior lateral spleen. This may just be flow artifact. Small splenic laceration would be a second possibility. However, there is no fluid surrounding the spleen and there is no fluid in the abdomen or pelvic. 2. There is some diastases of the pubic symphysis. There is a fracture involving the anterior portion of the right acetabulum with the fracture line extending into the right ischium. There is also a fracture involving the right inferior pubic ramus. 3. There is a hematoma along the anterior lateral aspect of urinary bladder which is most likely related to the pelvic fractures. Lencho Dominguez MD Objective Remarks Right upper extremity: exfix in place. pin sites clean. no drainage. good cap refill Left upper extremity: No laxity with shoulder elbow or wrist. Distally capillary refills and good distal pulses Bilateral lower extremities: No laxity with hip knee or ankles bilaterally. Distally intact distal pulses. Assessment & Plan Assessment and Plan Severely comminuted right distal radius open fracture with dislocation of distal radial ulnar joint s/p I&d and application of exfix - POD 2 s/p disruption of pubic symphysis s/p right elbow injury Maintain exfix pin care BID plan for further surgical intervention next week for wrist and possibly pubic symphysis continue current care Andry Marquez/Surface Plate Finisher BRIDGER Jan 10, 2018 09:07
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
--- NOTE | 2018-01-10 10:45 | MP ---
cc: Ute Montoya MD DATE OF OPERATION: 01/09/2018 PREOPERATIVE DIAGNOSIS: Respiratory failure and facial fractures. POSTOPERATIVE DIAGNOSIS: Respiratory failure and facial fractures. PROCEDURE PERFORMED: Blue Rhino tracheostomy, bronchoscopy. SURGEON: Ute Montoya MD BRONCHOSCOPIST: Dr. Gan. ANESTHESIA: General. ESTIMATED BLOOD LOSS: 10 milliliters. DESCRIPTION OF PROCEDURE: The patient prepped and draped in usual fashion. Vertical incision made in the midline, just above the sternal notch, deepened down with a hemostat to the level of the trachea. Bronchoscope is inserted through the endotracheal tube and this one is withdrawn. Angiocath is now placed between the second and third tracheal ring and under direct vision, guidewire is inserted. Now monitoring with bronchoscope over the guidewire, the punch dilator was placed and then the Blue Rhino dilator. This followed with 8 Shiley cannula, which is sutured in place with 2-0 Prolene and connected to the ventilator and tidal CO2 checked and dressing applied. The patient tolerated the procedure well. MD SHREYAS Portillo/YUNG , 07:43 PM , 09:46 PM
--- NOTE | 2018-01-10 14:24 | PD.RAD ---
Post Procedure Progress Note Pre Procedure Diagnosis: (1) Multiple facial fractures (2) Mild major neurocognitive disorder due to traumatic brain injury with behavioral disturbance Post Procedure Diagnosis: (1) Multiple facial fractures (2) Mild major neurocognitive disorder due to traumatic brain injury with behavioral disturbance Procedure Date: Jan 10, 2018 Supervising Radiologist: Mansoor Elmore JR Proceduralist/Assist: Kraig Ross, RT(R), Fozia Carrizales RT(R)(CV) Anesthesia: Other Plan of Activity Patient to Unit: Critical Care Patient Condition: Fair See PACS Report for procedural detail/treatment Feeding Tube Gastrostomy Placement Divehi: 18 Findings: Patients stomach already distended, no NGT required for this G tube placement. G tube in good position. Plan T fasteners will fall off on their own in approx 3 weeks Jr. Ramírez,Mansoor Cates MD Jan 10, 2018 14:24
[2018-01-10] MEDS ORDERED: IOHEXOL 350 MG/ML 50 ML BTL (for RAD DIAG) G-TUBE ONE (14:32)
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
--- NOTE | 2018-01-10 15:42 | HHI.PR ---
Subjective Remarks POD 1 s/p lefort 2 maxillary fracture mandible symphysis fracture right orbital floor fracture nasal bone fracture loose/avulsed teeth 04/11//08/14/12 complex chin lacerations x 2 - 6cm/2.5cm pt seen and examined, trached, vented, nurse/ at bedside Objective Vital Signs Date Time Temp Pulse Resp B/P (MAP) Pulse Ox O2 Delivery O2 Flow Rate FiO2 01/10/18 07:58 35 01/10/18 07:58 96 35 01/10/18 07:00 100 Mechanical Ventilator 30 01/10/18 06:00 66 01/10/18 04:10 98 30 01/10/18 04:00 30 01/10/18 04:00 99.3 66 16 109/58 (75) 100 01/10/18 04:00 66 01/10/18 04:00 66 01/10/18 02:00 66 01/10/18 01:08 100 30 01/10/18 00:00 99.3 66 16 109/55 (73) 98 01/10/18 00:00 65 01/10/18 00:00 30 01/09/18 22:42 100 50 I/O 01/09/18 01/09/18 01/09/18 01/10/18 01/10/18 01/10/18 07:00 15:00 23:00 07:00 15:00 23:00 Intake Total 250 ml 200 ml 2700 ml Output Total 2635 ml 3350 ml Balance -2635 ml 250 ml 200 ml -650 ml Intake Oral 0 ml IV Total 250 ml 200 ml 200 ml Other 2500 ml Output Urine Total 2330 ml 3050 ml Gastric Drainage Total 225 ml Chest Tube Drainage Total 80 ml 100 ml Estimated Blood Loss 200 ml Result Diagram: 01/10/180 01/10/18 0440 Objective Remarks perrla/eomi - appears + good visual acuity, pt following commands, moderate facial edema, b/l periorbital ecchymosis, eye wide open chin dressing in place/ nasal splint with merosol sponges in place intraorally, wound margins well approximated/sutures intact tissues pink/well perfused/hemostatic Assessment and Plan Assessment and Plan lefort 2 maxillary fracture mandible symphysis fracture right orbital floor fracture nasal bone fracture loose/avulsed teeth /08/14/12 complex chin lacerations x 2 - 6cm/2.5cm removed nasal merosol sponges/ continue supportive care will follow Warren Mora DMD Jan 10, 2018 15:42
[2018-01-10] MEDS ORDERED: LACTULOSE SYRUP 20 GM/30 ML CUP PO ONE (16:00)
[2018-01-10] MEDS: oxyCODONE HCL ORAL CONC 5 MG/0.25 ML SYRINGE PO SCH ×2 (16:00→20:50)
[2018-01-10] MEDS ORDERED: methylPREDNISolone ACETATE 80 MG/ML VIAL IM ONE (18:00)
[2018-01-10] MEDS: PANTOPRAZOLE SODIUM 40 MG VIAL IVP SCH (20:51)
[2018-01-10] MEDS: ONDANSETRON HCL 4 MG/2 ML VIAL IV PUSH PRN (21:47)
[2018-01-11] VITALS (18 sets, daily range): BP systolic 102–160; BP diastolic 48–76; PULSE 56–110; RESP 16–22; TEMP 98.8–100; O2SAT 97–100
[2018-01-11] MEDS ORDERED: METOCLOPRAMIDE HCL 10 MG/2 ML VIAL IV ONE (01:45)
[2018-01-11] MEDS: PROPOFOL 1000 MG/100 ML IV PRN ×2 (01:58→07:02)
[2018-01-11] MEDS: RESP: ALBUTEROL 2.5 MG/IPRATROPIUM 0.5 MG NEB (SCH) NEB ×4 (03:16→21:09)
[2018-01-11] MEDS: CHLORHEXIDINE GLUCONATE 2 % 1 PACK (2 CLOTHS) TOP SCH (04:00)
[2018-01-11] MEDS: oxyCODONE HCL ORAL CONC 5 MG/0.25 ML SYRINGE PO SCH ×7 (04:00→20:00)
--- NOTE | 2018-01-11 04:17 | RADRPT ---
EXAM DATE/TIME: 01/11/2018 03:20 [facility] COMPARISON: CHEST SINGLE AP, January 10, 2018, 3:11. INDICATIONS : Status post chest tube removal. MEDICAL HISTORY : None. SURGICAL HISTORY : None. ENCOUNTER: Initial ACUITY: 1 day PAIN SCORE: Non-responsive. LOCATION: Bilateral chest FINDINGS: No infiltrates seen. No large effusion. Left chest tube removed in the interim. No pneumothorax demon strated. Tracheostomy tube again seen. There is a nasogastric tube coursing into the stomach and a left subcla vian central venous catheter with tip in the superior vena cava. CONCLUSION: Left chest tube out. No pneumothorax or other acute abnormality. Other lines and tubes unchanged. Esequiel Tran MD on January 11, 2018 at 4:15 Board Certified Radiologist. This report was verified electronically.
[2018-01-11] MEDS: LACTATED RINGER'S 1000 ML INJ 1,000 ML IV SCH ×2 (04:46→14:28)
[2018-01-11 05:06] LABS: AUTOMATED NEUTROPHIL # 6.7 TH/MM3 (1.8-7.7); BASOPHIL % 0.1 % (0.0-2.0); HEMATOCRIT 23.6 % (39.0-51.0); HEMOGLOBIN 8.6 GM/DL (13.0-17.0); LYMPH % 2.7 % (9.0-44.0); LYMPHOCYTE # 0.2 TH/MM3 (1.0-4.8); MEAN CORPUSCULAR HEMOGLOBIN 32.7 PG (27.0-34.0); MEAN PLATELET VOLUME 8.4 FL (7.0-11.0); MONO % 13.1 % (0.0-8.0); NEUT % 84.1 % (16.0-70.0); PLATELET COUNT 96 TH/MM3 (150-450); RED BLOOD COUNT 2.62 MIL/MM3 (4.50-5.90)
[2018-01-11 05:13] LABS: MEAN CORPUSCULAR HGB CONC 36.3 % (32.0-36.0)
[2018-01-11 05:31] LABS: BICARBONATE 28.5 MEQ/L (21.0-32.0); CALCIUM 7.8 MG/DL (8.5-10.1); CREATININE 0.6 MG/DL (0.60-1.30)
[2018-01-11] MEDS: GENTAMICIN 80 MG PREMIX 100 ML IV SCH (05:36)
[2018-01-11] MEDS: HEPARIN SODIUM - SQ 10,000 UNITS/ML VIAL SQ SCH (05:42)
[2018-01-11] MEDS: fentaNYL 2,500 MCG/NS 250 ML IV PRN (05:43)
[2018-01-11] MEDS ORDERED: METOCLOPRAMIDE HCL 10 MG/2 ML VIAL IV SCH (08:00)
[2018-01-11 08:26] LABS: BANDS 7 % (0-6); LYMPHOCYTES 3 % (9-44); MONOCYTES 8 % (0-8); MYELOCYTES 1 % (0-0); NEUTROPHIL # MANUAL DIFF 7.1 TH/MM3 (1.8-7.7); POLYS (SEG NEUTROPHILS) 81 % (16-70)
[2018-01-11] MEDS: DOCUSATE SODIUM 50 MG/SENNA 8.6 MG TAB PO SCH ×2 (08:46→21:00)
[2018-01-11] MEDS: LACTULOSE SYRUP 20 GM/30 ML CUP PO SCH (08:46)
[2018-01-11] MEDS: BACITRACIN TOP OINT 15 GM TUBE TOP SCH ×2 (08:47→21:00)
[2018-01-11] MEDS: CHLORHEXIDINE 0.12% (ORAL KIT) 15 ML CUP MT SCH ×2 (08:47→20:00)
[2018-01-11] MEDS: BISACODYL 10 MG SUPP RECTAL SCH (09:00)
--- NOTE | 2018-01-11 09:33 | HHI.PR ---
Subjective Remarks POD 2 s/p lefort 2 maxillary fracture mandible symphysis fracture right orbital floor fracture nasal bone fracture loose/avulsed teeth 04/11///09/15 complex chin lacerations x 2 - 6cm/2.5cm pt seen and examined, trached, nurse/ at bedside following commands overnight episode of emesis Objective Vital Signs Date Time Temp Pulse Resp B/P (MAP) Pulse Ox O2 Delivery O2 Flow Rate FiO2 01/11/18 07:58 100 30 01/11/18 07:58 30 01/11/18 06:00 66 01/11/18 04:10 99 30 01/11/18 04:00 99.0 70 16 102/48 (66) 97 01/11/18 04:00 35 01/11/18 04:00 62 01/11/18 02:00 62 01/11/18 01:09 98 30 01/11/18 00:00 99.0 70 18 126/62 (83) 97 01/11/18 00:00 35 01/11/18 00:00 110 01/10/18 22:50 100 35 01/10/18 22:00 82 01/10/18 20:00 98.6 70 16 120/58 (78) 96 01/10/18 20:00 35 01/10/18 20:00 70 01/10/18 19:52 97 35 01/10/18 19:00 97 Trach Collar 35 01/10/18 18:00 70 01/10/18 16:53 96 40 01/10/18 16:00 77 01/10/18 16:00 98.4 77 25 157/83 (107) 97 01/10/18 16:00 35 01/10/18 14:00 69 01/10/18 12:00 98.4 86 16 151/82 (105) 97 01/10/18 12:00 86 01/10/18 12:00 35 01/10/18 10:00 75 I/O 01/10/18 01/10/18 01/10/18 01/11/18 01/11/18 01/11/18 07:00 15:00 23:00 07:00 15:00 23:00 Intake Total 2700 ml 1450 ml 1200 ml 100 ml Output Total 3350 ml 1325 ml 1550 ml Balance -650 ml 125 ml -350 ml 100 ml Intake Oral 0 ml 0 ml IV Total 200 ml 1450 ml 1200 ml 100 ml Other 2500 ml Output Urine Total 3050 ml 1025 ml 1050 ml Gastric Drainage Total 300 ml 300 ml Emesis 200 ml Chest Tube Drainage Total 100 ml Estimated Blood Loss 200 ml # Bowel Movements 0 0 Result Diagram: 01/11/1842901/11/18429 Objective Remarks perrla/eomi - pt following commands, moderate facial edema, b/l periorbital ecchymosis, eye wide open chin dressing loose s/p contamination from vomit/ nasal splint in place intraorally, wound margins well approximated/sutures intact tissues pink/well perfused/hemostatic good range of opening and closing without deviation no false point of motion maxilla/mandible Assessment and Plan Assessment and Plan POD 2 s/p orif lefort 2 maxillary fracture/mandible symphysis fracture reconstruction right orbital floor fracture cr nasal bone fracture removal loose/avulsed teeth 04/11///09/15, bone graft of maxillary alveolus repair complex chin lacerations x 2 - 6cm/2.5cm good facial projection/stability removed Elastoplast chin dressing, alcohol prep, Mastisol and new Elastoplast chin dressing continue supportive care will follow Warren Mora DMD Jan 11, 2018 09:33
[2018-01-11] MEDS: ONDANSETRON HCL 4 MG/2 ML VIAL IV PUSH PRN (11:26)
[2018-01-11] MEDS ORDERED: RESP: ALBUTEROL 2.5 MG/3 ML NEB (PRN) NEB ×2 (11:30→11:45)
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
--- NOTE | 2018-01-11 13:40 | RADRPT ---
EXAM DATE/TIME: 01/11/2018 12:28 [facility] COMPARISON: CT THORAX W CONTRAST, January 07, 2018, 8:24. CHEST SINGLE AP, January 07, 2018, 10:27. CHEST SINGLE AP , January 08, 2018, 5:11. CHEST SINGLE AP, January 09, 2018, 4:56. CHEST SINGLE AP, January 11, 2018, 3:2 0. INDICATIONS : Nausea, vomiting. MEDICAL HISTORY : None. SURGICAL HISTORY : None. ENCOUNTER: Subsequent ACUITY: 1 day PAIN SCORE: Non-responsive. LOCATION: Bilateral abdomen. FINDINGS: 2 supine AP views of the abdomen. Gastrostomy tube in place. Scattered gas in the mildly distended co jamil. Surgical clips in the upper abdomen. 7 mm lobulated metallic density is seen in the region of th e stomach. This is seen on prior chest radiograph in the region of the mid esophagus and may represen t a swallowed tooth. Degenerative findings of the lumbar spine. CONCLUSION: 1. Nonspecific bowel gas pattern with mild colonic distention. 2. Possible swallowed tooth or other 7 mm foreign body in the stomach. Usama Live MD on January 11, 2018 at 13:34 Board Certified Radiologist. This report was verified electronically.
[2018-01-11] MEDS: SIMETHICONE 80 MG CHEWABLE TAB CHEW PRN (13:41)
[2018-01-11] MEDS ORDERED: ARTIFICIAL TEARS OPTH SOLN 15 ML BTL EACH EYE SCH (14:00)
[2018-01-11] MEDS: ENOXAPARIN SODIUM 30 MG/0.3 ML SYRINGE SQ SCH ×2 (14:27→21:45)
[2018-01-11] MEDS: ARTIFICIAL TEARS OPTH SOLN 15 ML BTL EACH EYE SCH ×2 (14:27→22:00)
[2018-01-11] MEDS: METOCLOPRAMIDE HCL 10 MG/2 ML VIAL IV PUSH SCH ×2 (14:28→22:00)
[2018-01-11 17:27] LABS: DIRECT BILIRUBIN ADULT 0.1 MG/DL (0.0-0.2)
[2018-01-11 17:29] LABS: INDIRECT BILIRUBIN 0.4 MG/DL (0.0-0.8); TOTAL BILIRUBIN ADULT 0.5 MG/DL (0.2-1.0); TOTAL PROTEIN 4.7 GM/DL (6.4-8.2)
[2018-01-11] MEDS: PROMETHAZINE INJ 25 MG/ML VIAL IV-CENTRAL PRN (17:38)
[2018-01-12] VITALS (18 sets, daily range): BP systolic 125–165; BP diastolic 62–81; PULSE 66–99; RESP 16–19; TEMP 99.7–101.3; O2SAT 94–100
[2018-01-12] MEDS: RESP: ALBUTEROL 2.5 MG/IPRATROPIUM 0.5 MG NEB (SCH) NEB ×4 (03:24→22:01)
[2018-01-12] MEDS: CHLORHEXIDINE GLUCONATE 2 % 1 PACK (2 CLOTHS) TOP SCH (04:00)
[2018-01-12] MEDS: oxyCODONE HCL ORAL CONC 5 MG/0.25 ML SYRINGE PO SCH ×4 (04:00→16:28)
[2018-01-12 05:17] LABS: BASOPHIL % 0.1 % (0.0-2.0); EOSINOPHIL % 0.1 % (0.0-4.0); HEMATOCRIT 25.6 % (39.0-51.0); HEMOGLOBIN 8.9 GM/DL (13.0-17.0); LYMPHOCYTE # 0.5 TH/MM3 (1.0-4.8); MEAN CELL VOLUME 91.8 FL (80.0-100.0); MEAN CORPUSCULAR HGB CONC 34.8 % (32.0-36.0); MEAN PLATELET VOLUME 8.3 FL (7.0-11.0); MONO % 16.9 % (0.0-8.0); MONOCYTE # 1.1 TH/MM3 (0-0.9); NEUT % 74.9 % (16.0-70.0); PLATELET COUNT 113 TH/MM3 (150-450); RED BLOOD COUNT 2.79 MIL/MM3 (4.50-5.90); RED CELL DISTRIBUTION WIDTH 16.5 % (11.6-17.2); WHITE BLOOD COUNT 6.6 TH/MM3 (4.0-11.0)
[2018-01-12 05:35] LABS: BICARBONATE 28.2 MEQ/L (21.0-32.0); CALCIUM 7.4 MG/DL (8.5-10.1); CREATININE 0.51 MG/DL (0.60-1.30)
[2018-01-12 05:50] LABS: CALCIUM-PROTEIN CORRECTED 8.6 MG/DL (8.5-10.1); TOTAL PROTEIN 4.9 GM/DL (6.4-8.2)
[2018-01-12] MEDS: ARTIFICIAL TEARS OPTH SOLN 15 ML BTL EACH EYE SCH ×3 (06:00→22:12)
[2018-01-12] MEDS: METOCLOPRAMIDE HCL 10 MG/2 ML VIAL IV PUSH SCH ×3 (06:40→22:13)
[2018-01-12] MEDS: SIMETHICONE 80 MG CHEWABLE TAB CHEW PRN (07:48)
[2018-01-12] MEDS: DOCUSATE SODIUM 50 MG/SENNA 8.6 MG TAB PO SCH ×2 (07:48→22:14)
[2018-01-12] MEDS: ACETAMINOPHEN 1000 MG/100 ML 100 ML IV PRN (07:48)
[2018-01-12] MEDS: LANSOPRAZOLE SOLUTAB 30 MG TAB NG SCH (07:49)
[2018-01-12] MEDS: BISACODYL 10 MG SUPP RECTAL SCH (07:49)
[2018-01-12] MEDS: LACTULOSE SYRUP 20 GM/30 ML CUP PO SCH ×3 (07:49→22:14)
[2018-01-12] MEDS: PROMETHAZINE INJ 25 MG/ML VIAL IV-CENTRAL PRN (07:49)
[2018-01-12] MEDS: CHLORHEXIDINE 0.12% (ORAL KIT) 15 ML CUP MT SCH ×2 (07:49→20:00)
[2018-01-12] MEDS: BACITRACIN TOP OINT 15 GM TUBE TOP SCH ×2 (07:50→21:00)
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
[2018-01-12] MEDS ORDERED: MAGNESIUM CITRATE SOLN 300 ML BTL PO ONE (10:00)
[2018-01-12] MEDS ORDERED: fentaNYL CITRATE 250 MCG/5 ML AMP IV PUSH PRN (10:00)
--- NOTE | 2018-01-12 10:03 | RADRPT ---
EXAM DATE/TIME: 01/12/2018 09:33 [facility] COMPARISON: No previous studies available for comparison. INDICATIONS : Foreign body in abdomen. MEDICAL HISTORY : None. SURGICAL HISTORY : None. ENCOUNTER: Initial ACUITY: 1 day PAIN SCORE: Non-responsive. LOCATION: Bilateral abdomen. FINDINGS: Examination of the abdomen demonstrates a normal bowel gas pattern. No free air is identified. No o rganomegaly is evident. Radiopaque catheter extending into the gastric region is noted. Osseous struc tures are intact. CONCLUSION: No evidence of obstruction. PEG tube. No other evidence of foreign body. Sourav Belle MD on January 12, 2018 at 9:59 Board Certified Radiologist. This report was verified electronically.
--- NOTE | 2018-01-12 10:05 | RADRPT ---
EXAM DATE/TIME: 01/12/2018 09:28 [facility] COMPARISON: CHEST SINGLE AP, January 11, 2018, 3:20. INDICATIONS : Shortness of breath. MEDICAL HISTORY : None. SURGICAL HISTORY : None. ENCOUNTER: Initial ACUITY: 1 day PAIN SCORE: Non-responsive. LOCATION: Bilateral chest FINDINGS: A single view of the chest demonstrates the lungs to be symmetrically aerated without evidence of mas s, infiltrate or effusion. The cardiomediastinal contours are unremarkable. Tracheostomy tube and le ft subclavian line are in stable position. Osseous structures are intact. CONCLUSION: No acute disease. Sourav Belle MD on January 12, 2018 at 10:02 Board Certified Radiologist. This report was verified electronically.
--- NOTE | 2018-01-12 10:26 | HHI.PR ---
Subjective Remarks POD 3 s/p [place] 2 maxillary fracture mandible symphysis fracture right orbital floor fracture nasal bone fracture loose/avulsed teeth 04/11///09/15 complex chin lacerations x 2 - 6cm/2.5cm pt seen and examined, trached, nurse//son at bedside following commands overnight episode of emesis again Objective Vital Signs Date Time Temp Pulse Resp B/P (MAP) Pulse Ox O2 Delivery O2 Flow Rate FiO2 01/12/18 08:07 96 30 01/12/18 07:00 97 Mechanical Ventilator 30 01/12/18 06:00 88 01/12/18 04:00 30 01/12/18 04:00 78 01/12/18 04:00 100.2 66 16 142/64 (90) 94 01/12/18 03:28 98 30 01/12/18 02:00 69 01/12/18 00:13 98 30 01/12/18 00:00 99.7 66 16 131/62 (85) 98 01/12/18 00:00 66 01/12/18 00:00 30 01/11/18 22:00 80 01/11/18 21:17 98 30 01/11/18 20:00 76 01/11/18 20:00 30 01/11/18 20:00 100.0 82 18 160/76 (104) 98 01/11/18 19:00 97 Mechanical Ventilator 30 01/11/18 18:21 16 01/11/18 18:00 87 01/11/18 16:00 61 01/11/18 16:00 30 01/11/18 16:00 99.5 62 18 125/57 (79) 99 01/11/18 15:42 99 30 01/11/18 14:00 62 01/11/18 12:00 73 01/11/18 12:00 99.3 73 19 141/63 (89) 97 01/11/18 12:00 30 01/11/18 11:53 99 30 I/O 01/11/18 01/11/18 01/11/18 01/12/18 01/12/18 01/12/18 07:00 15:00 23:00 07:00 15:00 23:00 Intake Total 1200 ml 100 ml 0 ml 100 ml Output Total 1550 ml 1170 ml 1550 ml Balance -350 ml 100 ml -1170 ml -1550 ml 100 ml Intake Oral 0 ml 0 ml IV Total 1200 ml 100 ml 100 ml Output Urine Total 1050 ml 1070 ml 1250 ml Gastric Drainage Total 300 ml 100 ml 300 ml Emesis 200 ml # Bowel Movements 0 0 0 Result Diagram: 01/12/1841401/12/18414 Objective Remarks perrla/eomi - pt following commands, moderate facial edema, b/l periorbital ecchymosis, eye wide open chin dressing loose s/p contamination from vomit/ nasal splint in not properly in place - loose; loosened when nj tube was removed yesterday - no steri strips noted on nose intraorally, wound margins well approximated/sutures intact tissues pink/well perfused/hemostatic no signs of infection bleeding pus good range of opening and closing without deviation no false point of motion maxilla/mandible Assessment and Plan Assessment and Plan POD 3 s/p orif lefort 2 maxillary fracture/mandible symphysis fracture reconstruction right orbital floor fracture cr nasal bone fracture removal loose/avulsed teeth 04/11//08/14/12, bone graft of maxillary alveolus repair complex chin lacerations x 2 - 6cm/2.5cm good facial projection/stability removed Elastoplast chin dressing, alcohol prep, Mastisol and new Elastoplast chin dressing placed new karmen nasal splint continue supportive care Warren Mora DMD Jan 12, 2018 10:26
[2018-01-12] MEDS: LACTATED RINGER'S 1000 ML INJ 1,000 ML IV SCH (11:35)
[2018-01-12] MEDS: ENOXAPARIN SODIUM 30 MG/0.3 ML SYRINGE SQ SCH ×2 (11:36→22:13)
[2018-01-12 12:05] LABS: BILIRUBIN, URINE NEG (NEG); BLOOD, URINE SMALL (NEG); GLUCOSE,URINE NEG (NEG); HYALINE CAST, URINE 1 /lpf (RARE); KETONE, URINE 10 mg/dL (NEG); MUCUS URINE FEW /lpf (OCC); NITRITE,URINE NEG (NEG); PH, URINE 7.5 (5.0-8.5); URINE COLOR YELLOW (YELLW/STRAW); URINE LEUKOCYTE ESTERASE NEG (NEG)
[2018-01-12] MEDS ORDERED: DIATRIZOATE MEGLUM/DIATRIZOATE SOD 9 ML CUP PO ONE (13:00)
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
[2018-01-12] MEDS: ONDANSETRON HCL 4 MG/2 ML VIAL IV PUSH PRN (21:05)
[2018-01-12] MEDS ORDERED: IOHEXOL 350 MG/ML 10 ML VIAL (for RAD DIAG) IVCONTRAST ONE (21:45)
--- NOTE | 2018-01-12 22:15 | RADRPT ---
EXAM DATE/TIME: 01/12/2018 21:33 [place] COMPARISON: CT ABDOMEN & PELVIS W CONTRAST, January 07, 2018, 8:24. INDICATIONS : Abdominal distention; possible ileus. Check peg tube placement. IV CONTRAST: 96 cc Omnipaque 350 (iohexol) IV ORAL CONTRAST: Prescribed oral contrast ingested. RADIATION DOSE: 9.52 CTDIvol (mGy) MEDICAL HISTORY : None SURGICAL HISTORY : None. ENCOUNTER: Initial ACUITY: 1 day PAIN SCALE: Non-responsive LOCATION: abdomen TECHNIQUE: Volumetric scanning of the abdomen and pelvis was performed. Using automated exposure control and ad justment of the mA and/or kV according to patient size, radiation dose was kept as low as reasonably achievable to obtain optimal diagnostic quality images. DICOM format image data is available electro nically for review and comparison. FINDINGS: Her kidneys gastrostomy tube is in place with the balloon within the lumen of the stomach. The stoma ch is mildly distended with air-fluid level seen in the fundus and antrum. There are a few dilated l oops of small bowel in the upper abdomen measuring up to 3.2 cm in dimension. There is also gas and contrast seen in the colon. Subcutaneous emphysema along the left anterior abdominal wall lateral to the PEG tube. No evidence of free air within the abdomen. There is a mild amount of free fluid in the dependent pelvis measuring up to 1.6 cm in thickness. Chauhan catheter within nondistended urinary bladder. Bilateral lower lobe consolidative infiltrates and the costophrenic angles. CONCLUSION: PEG tube is normally positioned within the stomach. Mild gaseous distention of small large bowel loo ps suggesting ileus. No evidence of free intraperitoneal gas. Mansoor Moya MD on January 12, 2018 at 22:10 Board Certified Radiologist. This report was verified electronically.
[2018-01-13] VITALS (17 sets, daily range): BP systolic 122–139; BP diastolic 65–81; PULSE 67–86; RESP 17–29; TEMP 99.7–102; O2SAT 98–100
[2018-01-13] MEDS: oxyCODONE HCL ORAL CONC 5 MG/0.25 ML SYRINGE PO SCH ×4 (00:08→23:24)
[2018-01-13] MEDS: SIMETHICONE 80 MG CHEWABLE TAB CHEW PRN (00:57)
[2018-01-13] MEDS: PROMETHAZINE INJ 25 MG/ML VIAL IV-CENTRAL PRN (00:57)
[2018-01-13] MEDS: ACETAMINOPHEN 1000 MG/100 ML 100 ML IV PRN ×3 (00:59→23:02)
[2018-01-13] MEDS: LACTULOSE SYRUP 20 GM/30 ML CUP PO SCH ×4 (03:24→19:42)
[2018-01-13] MEDS: CHLORHEXIDINE GLUCONATE 2 % 1 PACK (2 CLOTHS) TOP SCH (04:00)
[2018-01-13] MEDS: RESP: ALBUTEROL 2.5 MG/IPRATROPIUM 0.5 MG NEB (SCH) NEB ×4 (04:28→20:18)
[2018-01-13 04:54] LABS: BASOPHIL % 0.2 % (0.0-2.0); EOSINOPHIL # 0.1 TH/MM3 (0-0.4); EOSINOPHIL % 1.1 % (0.0-4.0); HEMATOCRIT 28.4 % (39.0-51.0); HEMOGLOBIN 9.9 GM/DL (13.0-17.0); LYMPH % 8.5 % (9.0-44.0); LYMPHOCYTE # 0.6 TH/MM3 (1.0-4.8); MEAN CELL VOLUME 92.7 FL (80.0-100.0); MEAN CORPUSCULAR HEMOGLOBIN 32.2 PG (27.0-34.0); MEAN CORPUSCULAR HGB CONC 34.7 % (32.0-36.0); MEAN PLATELET VOLUME 7.7 FL (7.0-11.0); MONO % 15.3 % (0.0-8.0); NEUT % 74.9 % (16.0-70.0); PLATELET COUNT 107 TH/MM3 (150-450); RED BLOOD COUNT 3.06 MIL/MM3 (4.50-5.90); RED CELL DISTRIBUTION WIDTH 16.5 % (11.6-17.2); WHITE BLOOD COUNT 6.6 TH/MM3 (4.0-11.0)
[2018-01-13 05:12] LABS: BICARBONATE 26.2 MEQ/L (21.0-32.0); CALCIUM 7.8 MG/DL (8.5-10.1); CREATININE 0.57 MG/DL (0.60-1.30)
[2018-01-13] MEDS: METOCLOPRAMIDE HCL 10 MG/2 ML VIAL IV PUSH SCH ×5 (05:54→22:07)
[2018-01-13] MEDS: ARTIFICIAL TEARS OPTH SOLN 15 ML BTL EACH EYE SCH ×3 (05:54→22:00)
[2018-01-13] MEDS: LACTATED RINGER'S 1000 ML INJ 1,000 ML IV SCH ×2 (06:20→14:30)
[2018-01-13] MEDS: CHLORHEXIDINE 0.12% (ORAL KIT) 15 ML CUP MT SCH ×2 (08:00→20:00)
--- NOTE | 2018-01-13 08:19 | PD.ORT.PN ---
Subjective Subjective Remarks POD 5 s/p I&D with application of exfix to right wrist s/p disruption of pubic symphysis awake. trached. Objective Vitals Vital Signs Date Time Temp Pulse Resp B/P (MAP) Pulse Ox O2 Delivery O2 Flow Rate FiO2 01/13/18 07:00 99 Mechanical Ventilator 30 01/13/18 06:00 83 01/13/18 04:34 98 30 01/13/18 04:00 30 01/13/18 04:00 67 01/13/18 04:00 99.9 67 17 139/78 (98) 98 01/13/18 02:00 70 01/13/18 01:32 100 30 01/13/18 00:00 74 01/13/18 00:00 100.0 74 17 122/65 (84) 100 01/13/18 00:00 30 01/12/18 22:06 99 30 01/12/18 22:00 74 01/12/18 21:55 100 100 01/12/18 20:00 30 01/12/18 20:00 100.4 82 16 147/81 (103) 99 01/12/18 20:00 82 01/12/18 19:00 99 Mechanical Ventilator 30 01/12/18 18:00 80 01/12/18 16:00 81 01/12/18 16:00 30 01/12/18 16:00 100.6 84 19 125/73 (90) 99 Arterial Line 01/12/18 15:31 30 01/12/18 15:30 99 30 01/12/18 14:00 86 01/12/18 12:00 30 01/12/18 12:00 100.6 84 18 144/77 (99) 98 01/12/18 12:00 84 01/12/18 10:00 97 I/O 01/12/18 01/12/18 01/12/18 01/13/18 01/13/18 01/13/18 07:00 15:00 23:00 07:00 15:00 23:00 Intake Total 0 ml 100 ml 0 ml 1500 ml Output Total 1550 ml 2870 ml 2000 ml Balance -1550 ml 100 ml -2870 ml -500 ml Intake Oral 0 ml 0 ml IV Total 100 ml 1100 ml Other 400 ml Output Urine Total 1250 ml 2600 ml 1500 ml Gastric Drainage Total 300 ml 200 ml 500 ml Emesis 70 ml # Bowel Movements 0 1 1 Result Diagram: 01/13/1842201/13/18422 Imaging Last 24 hours Impressions Chest X-Ray 01/08/18 0600 Signed Impressions: Service Date/Time: Monday, January 08, 2018 05:11 - CONCLUSION: Stable chest x-ray. No pneumothorax or acute pulmonary abnormality is seen. Esequiel García MD Pelvis X-Ray 01/07/18750 Signed Impressions: Service Date/Time: Sunday, January 07, 2018 07:47 - CONCLUSION: 1. Diastasis of the pubic symphysis with widened left SI joint. 2. Questionable subtle nondisplaced fractures of the right inferior pubic ramus and lesser trochanter of the right femur. Saroj Carrillo MD Maxillofacial CT 01/07/18750 Signed Impressions: Service Date/Time: Sunday, January 07, 2018 08:24 - CONCLUSION: Multiple severely comminuted facial fractures as described above. Lencho Dominguez MD Head CT 01/07/18750 Signed Impressions: Service Date/Time: Sunday, January 07, 2018 08:24 - CONCLUSION: 1. No focal or acute intracranial hemorrhage. 2. Multiple comminuted facial fractures. Lencho Dominguez MD Chest X-Ray 01/07/18750 Signed Impressions: Service Date/Time: Sunday, January 07, 2018 07:47 - CONCLUSION: 1. Increased lucency near the left lung base, likely artifactual, although a small left subpulmonic pneumothorax cannot be entirely excluded. Saroj Carrillo MD Chest CT 01/07/18750 Signed Impressions: Service Date/Time: Sunday, January 07, 2018 08:24 - CONCLUSION: 1. Minimal bibasilar airspace disease, more prominently on the right. Differential considerations include pulmonary contusions versus atelectasis. 2. Subtle cortical step-off in the inferior scapula. Suspect this reflects an old injury. Correlation with physical exam and history is recommended. Saroj Carrillo MD Cervical Spine CT 01/07/18750 Signed Impressions: Service Date/Time: Sunday, January 07, 2018 08:24 - CONCLUSION: 1. No acute fracture or subluxation. Saroj Carrillo MD Abdomen/Pelvis CT 01/07/18 0751 Signed Impressions: Service Date/Time: Sunday, January 07, 2018 08:24 - CONCLUSION: 1. Small focal nonspecific defect in the superior lateral spleen. This may just be flow artifact. Small splenic laceration would be a second possibility. However, there is no fluid surrounding the spleen and there is no fluid in the abdomen or pelvic. 2. There is some diastases of the pubic symphysis. There is a fracture involving the anterior portion of the right acetabulum with the fracture line extending into the right ischium. There is also a fracture involving the right inferior pubic ramus. 3. There is a hematoma along the anterior lateral aspect of urinary bladder which is most likely related to the pelvic fractures. Lencho Dominguez MD Objective Remarks Right upper extremity: exfix in place. pin sites clean. no drainage. good cap refill Left upper extremity: No laxity with shoulder elbow or wrist. Distally capillary refills and good distal pulses Bilateral lower extremities: No laxity with hip knee or ankles bilaterally. Distally intact distal pulses. Assessment & Plan Assessment and Plan 1) Severely comminuted right distal radius open fracture with dislocation of distal radial ulnar joint s/p I&d and application of exfix - POD 5 2) s/p disruption of pubic symphysis 3) s/p right elbow injury Maintain exfix pin care BID plan for ORIF and removal of exfix tomorrow of wrist also plan for fixation of pelvis tomrrow npo after MN sign consents hold Andry Agosto/Business Intelligence Director PA Jan 13, 2018 08:19
[2018-01-13] MEDS: LANSOPRAZOLE SOLUTAB 30 MG TAB NG SCH (08:28)
[2018-01-13] MEDS: DOCUSATE SODIUM 50 MG/SENNA 8.6 MG TAB PO SCH ×2 (08:29→19:42)
[2018-01-13] MEDS: BISACODYL 10 MG SUPP RECTAL SCH (08:29)
[2018-01-13] MEDS: BACITRACIN TOP OINT 15 GM TUBE TOP SCH ×2 (08:29→21:00)
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
[2018-01-13] MEDS ORDERED: fentaNYL 50 MCG/HR PATCH T-DERMAL SCH ×2 (10:45→12:00)
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
[2018-01-13] MEDS ORDERED: Vancomycin Consult Pharmacy 1 EA OTHER SCH (13:00)
--- NOTE | 2018-01-13 13:01 | PD.PROCEDR ---
Procedure Note Procedure DX: Acute respiratory failure, inability to wean OP: Bronchoscopy for percutaneous tracheostomy Procedure: Time out performed. Bronchoscope delivered through a sideport in the ventilator circuit and passed through the orotracheal tube. The tracheobronchial tree revealed normal anatomy and the mucosa was normal. Moderate amount of white secretions suctioned out from bilateral lower lobe. The scope and ET tube were then withdrawn to the level of the cricoid and used for visualization of the anterior tracheal wall during insertion of a percutaneous tracheostomy. After insertion the scope was passed through the new trach tube and visualized in good position above the elieser and with no bleeding from above. The vent circuit was rapidly transferred to the new trach site and full vent volumes were observed returning. O2 saturation was maintained over 95% throughout the procedure. Abelardo Iraheta MD Jan 13, 2018 13:01
[2018-01-13] MEDS: ONDANSETRON HCL 4 MG/2 ML VIAL IV PUSH PRN (13:24)
[2018-01-13] MEDS: fentaNYL 50 MCG/HR PATCH T-DERMAL SCH (14:00)
[2018-01-13] MEDS: CEFEPIME INJ 2,000 MG in SODIUM CHLORIDE 0.9% INJ 100 ML IV SCH ×2 (14:00→22:07)
[2018-01-13] MEDS ORDERED: VANCOMYCIN INJ 1,250 MG in SODIUM CHLOR 0.9% 250 ML INJ 250 ML IV ONE (15:00)
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
[2018-01-14] VITALS (12 sets, daily range): BP systolic 116–129; BP diastolic 58–64; PULSE 67–95; RESP 7–21; TEMP 98.8–100.9; O2SAT 97–100
[2018-01-14] MEDS: VANCOMYCIN INJ 1,500 MG in SODIUM CHLORID 0.9% 500 ML INJ 500 ML IV SCH ×2 (01:11→13:00)
[2018-01-14] MEDS: LACTATED RINGER'S 1000 ML INJ 1,000 ML IV SCH ×3 (02:20→20:29)
[2018-01-14] MEDS: LACTULOSE SYRUP 20 GM/30 ML CUP PO SCH ×4 (02:34→20:22)
[2018-01-14] MEDS: RESP: ALBUTEROL 2.5 MG/IPRATROPIUM 0.5 MG NEB (SCH) NEB ×4 (03:28→20:06)
[2018-01-14] MEDS ORDERED: POVIDONE IODINE 5% (ANTISEPSIS KIT) 4 APPLICATIONS EACH NARE PRN (03:45)
[2018-01-14] MEDS ORDERED: SODIUM CHLORID 0.9% 500 ML IV PRN (03:45)
[2018-01-14] MEDS ORDERED: LACTATED RINGER'S 1000 ML IV PRN (03:45)
[2018-01-14] MEDS ORDERED: CHLORHEXIDINE GLUCONATE 2 % 1 PACK (2 CLOTHS) TOPICAL PRN (03:45)
[2018-01-14] MEDS: CHLORHEXIDINE GLUCONATE 2 % 1 PACK (2 CLOTHS) TOP SCH (04:00)
[2018-01-14] MEDS: ARTIFICIAL TEARS OPTH SOLN 15 ML BTL EACH EYE SCH ×3 (05:39→20:29)
[2018-01-14] MEDS: CEFEPIME INJ 2,000 MG in SODIUM CHLORIDE 0.9% INJ 100 ML IV SCH (05:39)
[2018-01-14] MEDS: METOCLOPRAMIDE HCL 10 MG/2 ML VIAL IV PUSH SCH ×6 (05:39→20:28)
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
--- NOTE | 2018-01-14 07:49 | PD.ORT.PN ---
Subjective Subjective Remarks s/p I&D with application of exfix to right wrist s/p disruption of pubic symphysis awake. trached. Objective Vitals Vital Signs Date Time Temp Pulse Resp B/P (MAP) Pulse Ox O2 Delivery O2 Flow Rate FiO2 01/14/18 07:00 99 Trach Collar 35 01/14/18 06:00 73 01/14/18 04:00 98.8 76 16 118/64 (82) 99 01/14/18 04:00 76 01/14/18 02:00 67 01/14/18 00:00 78 01/14/18 00:00 100.2 78 18 129/58 (81) 99 01/13/18 22:00 81 01/13/18 20:20 99 T-piece 5.00 35 01/13/18 20:00 100.9 78 22 134/70 (91) 99 01/13/18 20:00 78 01/13/18 19:00 99 Trach Collar 35 01/13/18 18:00 85 01/13/18 16:00 102.0 84 29 136/75 (95) 100 01/13/18 16:00 84 01/13/18 14:00 68 01/13/18 12:27 99 T-piece 6.00 35 01/13/18 12:27 Blow By 35 01/13/18 12:00 100.0 86 26 134/73 (93) 98 01/13/18 12:00 77 01/13/18 10:00 83 01/13/18 10:00 30 01/13/18 09:33 30 01/13/18 09:30 98 30 01/13/18 08:20 30 01/13/18 08:00 30 01/13/18 08:00 99.7 84 20 122/81 (95) 98 01/13/18 08:00 84 I/O 01/13/18 01/13/18 01/13/18 01/14/18 01/14/18 01/14/18 07:00 15:00 23:00 07:00 15:00 23:00 Intake Total 1500 ml 200 ml 1615 ml Output Total 2000 ml 2275 ml 1150 ml Balance -500 ml -2075 ml 465 ml IV Total 1100 ml 100 ml 1615 ml Tube Irrigant 100 ml Other 400 ml Output Urine Total 1500 ml 2075 ml 1000 ml Gastric Drainage Total 500 ml 200 ml 150 ml # Bowel Movements 1 3 Result Diagram: 01/13/183 01/13/18422 Imaging Last 24 hours Impressions Chest X-Ray 01/08/18 0600 Signed Impressions: Service Date/Time: Monday, January 08, 2018 05:11 - CONCLUSION: Stable chest x-ray. No pneumothorax or acute pulmonary abnormality is seen. Esequiel García MD Pelvis X-Ray 01/07/18750 Signed Impressions: Service Date/Time: Sunday, January 07, 2018 07:47 - CONCLUSION: 1. Diastasis of the pubic symphysis with widened left SI joint. 2. Questionable subtle nondisplaced fractures of the right inferior pubic ramus and lesser trochanter of the right femur. Saroj Carrillo MD Maxillofacial CT 01/07/18750 Signed Impressions: Service Date/Time: Sunday, January 07, 2018 08:24 - CONCLUSION: Multiple severely comminuted facial fractures as described above. Lencho Dominguez MD Head CT 01/07/18750 Signed Impressions: Service Date/Time: Sunday, January 07, 2018 08:24 - CONCLUSION: 1. No focal or acute intracranial hemorrhage. 2. Multiple comminuted facial fractures. Lencho Dominguez MD Chest X-Ray 01/07/18750 Signed Impressions: Service Date/Time: Sunday, January 07, 2018 07:47 - CONCLUSION: 1. Increased lucency near the left lung base, likely artifactual, although a small left subpulmonic pneumothorax cannot be entirely excluded. Saroj Carrillo MD Chest CT 01/07/18750 Signed Impressions: Service Date/Time: Sunday, January 07, 2018 08:24 - CONCLUSION: 1. Minimal bibasilar airspace disease, more prominently on the right. Differential considerations include pulmonary contusions versus atelectasis. 2. Subtle cortical step-off in the inferior scapula. Suspect this reflects an old injury. Correlation with physical exam and history is recommended. Saroj Carrillo MD Cervical Spine CT 01/07/18750 Signed Impressions: Service Date/Time: Sunday, January 07, 2018 08:24 - CONCLUSION: 1. No acute fracture or subluxation. Saroj Carrillo MD Abdomen/Pelvis CT 01/07/18 0751 Signed Impressions: Service Date/Time: Sunday, January 07, 2018 08:24 - CONCLUSION: 1. Small focal nonspecific defect in the superior lateral spleen. This may just be flow artifact. Small splenic laceration would be a second possibility. However, there is no fluid surrounding the spleen and there is no fluid in the abdomen or pelvic. 2. There is some diastases of the pubic symphysis. There is a fracture involving the anterior portion of the right acetabulum with the fracture line extending into the right ischium. There is also a fracture involving the right inferior pubic ramus. 3. There is a hematoma along the anterior lateral aspect of urinary bladder which is most likely related to the pelvic fractures. Lencho Dominguez MD Objective Remarks Right upper extremity: exfix in place. pin sites clean. no drainage. good cap refill Left upper extremity: No laxity with shoulder elbow or wrist. Distally capillary refills and good distal pulses Bilateral lower extremities: No laxity with hip knee or ankles bilaterally. Distally intact distal pulses. Assessment & Plan Assessment and Plan 1) Severely comminuted right distal radius open fracture with dislocation of distal radial ulnar joint s/p I&d and application of exfix - POD 6 2) s/p disruption of pubic symphysis 3) s/p right elbow injury Maintain exfix pin care BID plan for ORIF and removal of exfix today of wrist also plan for fixation of pelvis today surgery this afternoon Andry Marquez/Registered Representative BRIDGER Jan 14, 2018 07:49
[2018-01-14] MEDS: CHLORHEXIDINE 0.12% (ORAL KIT) 15 ML CUP MT SCH ×2 (08:00→20:29)
[2018-01-14] MEDS: oxyCODONE HCL ORAL CONC 5 MG/0.25 ML SYRINGE PO SCH ×2 (08:00→16:00)
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
[2018-01-14] MEDS: BISACODYL 10 MG SUPP RECTAL SCH (08:57)
[2018-01-14] MEDS: LANSOPRAZOLE SOLUTAB 30 MG TAB NG SCH (08:57)
[2018-01-14] MEDS: BACITRACIN TOP OINT 15 GM TUBE TOP SCH ×2 (08:57→20:29)
[2018-01-14] MEDS: DOCUSATE SODIUM 50 MG/SENNA 8.6 MG TAB PO SCH ×2 (08:57→20:22)
[2018-01-14] MEDS: ACETAMINOPHEN 1000 MG/100 ML 100 ML IV PRN (09:00)
[2018-01-14 09:57] LABS: HEMATOCRIT 29.3 % (39.0-51.0); HEMOGLOBIN 10.2 GM/DL (13.0-17.0); MEAN CELL VOLUME 92.9 FL (80.0-100.0); MEAN CORPUSCULAR HEMOGLOBIN 32.3 PG (27.0-34.0); MEAN CORPUSCULAR HGB CONC 34.7 % (32.0-36.0); MEAN PLATELET VOLUME 7.6 FL (7.0-11.0); PLATELET COUNT 108 TH/MM3 (150-450); RED BLOOD COUNT 3.15 MIL/MM3 (4.50-5.90); RED CELL DISTRIBUTION WIDTH 16.4 % (11.6-17.2); WHITE BLOOD COUNT 6.8 TH/MM3 (4.0-11.0)
[2018-01-14 10:07] LABS: ALBUMIN 1.9 GM/DL (3.4-5.0); AST (GOT) 25 U/L (15-37); BLOOD UREA NITROGEN 17 MG/DL (7-18); CHLORIDE 106 MEQ/L (98-107); CREATININE 0.46 MG/DL (0.60-1.30); GLOMERULAR FILTRATION RATE 195 ML/MIN (>89); GLUCOSE,RANDOM 100 MG/DL (74-106); SODIUM (NA) 139 MEQ/L (136-145)
[2018-01-14 10:08] LABS: ALT (GPT) 45 U/L (12-78)
[2018-01-14 10:10] LABS: ALKALINE PHOSPHATASE 70 U/L (45-117); TOTAL BILIRUBIN ADULT 0.9 MG/DL (0.2-1.0); TOTAL PROTEIN 4.7 GM/DL (6.4-8.2)
[2018-01-14 10:15] LABS: BANDS 5 % (0-6); LYMPHOCYTES 9 % (9-44); MONOCYTES 7 % (0-8); NEUTROPHIL # MANUAL DIFF 5.7 TH/MM3 (1.8-7.7); POLYS (SEG NEUTROPHILS) 79 % (16-70)
[2018-01-14 10:16] LABS: DOHLE BODIES PRESENT (NONE SEEN)
[2018-01-14] MEDS ORDERED: VANCOMYCIN HCL 1000 MG VIAL ONE ×2 (10:32→13:10)
[2018-01-14] MEDS ORDERED: GENTAMICIN SULFATE 80 MG/2 ML VIAL ONE (10:33)
[2018-01-14] MEDS ORDERED: ceFAZolin 2 GM PREMIX 50 ML ONE (10:33)
[2018-01-14] MEDS ORDERED: ceFAZolin INJ 1,000 MG VIAL ONE (10:33)
[2018-01-14] MEDS ORDERED: BUPIVACAINE/EPINEPHRINE 0.25% 50 ML VIAL ONE (10:36)
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
[2018-01-14] MEDS ORDERED: LIDOCAINE HCL 1% PF 5 ML SYRINGE OTHER ONE (12:00)
[2018-01-14] MEDS ORDERED: NEOSTIGMINE 5 MG/5 ML SYRINGE IV PUSH ONE (12:00)
[2018-01-14] MEDS ORDERED: LACTATED RINGER'S 1000 ML INJ 1,000 ML IV ONE (12:00)
[2018-01-14] MEDS ORDERED: GLYCOPYRROLATE 1 MG/5 ML SYRINGE IV PUSH ONE (12:00)
[2018-01-14] MEDS ORDERED: ROCURONIUM INJ 50 MG/5 ML SYRINGE IV PUSH ONE (12:00)
[2018-01-14] MEDS ORDERED: ONDANSETRON HCL 4 MG/2 ML VIAL IV ONE (12:00)
[2018-01-14] MEDS ORDERED: DEXAMETHASONE SOD PHOS 4 MG/ML VIAL IV ONE (12:00)
[2018-01-14] MEDS ORDERED: VECURONIUM BROMIDE 20 MG VIAL IV ONE (12:00)
[2018-01-14] MEDS ORDERED: STERILE WATER FOR INJECTION 20 ML VIAL IV ONE (12:00)
[2018-01-14] MEDS ORDERED: PROPOFOL 200 MG/20 ML AMP IV ONE (12:00)
[2018-01-14] MEDS ORDERED: LACTATED RINGER'S 1000 ML INJ 1,000 ML IV SCH (13:48)
--- NOTE | 2018-01-14 14:00 | PD.OP ---
cc: Romel Gaines MD Operative Report Date of Surgery: Jan 14, 2018 Preoperative Diagnosis: Pelvic ring disruption, open right radial shaft and distal radius fractures Postoperative Diagnosis: Procedure: External fixation of pelvis, closed reduction of pelvis with manipulation, irrigation debridement of open radius fractures, open reduction fixation right distal radius fracture, open reduction fixation right radial shaft fracture Anesthesia: Gen. Surgeon: Romel Gaines Local Announcer(s): JONN West PA-C The surgical procedure was assisted by my physician kindergarten teacher assistant. My P.A. presence was necessary throughout this case for the manipulation and positioning of the surgical extremity. My P.A. was assisting me throughout the duration of this procedure. The skill set of a physician kindergarten teacher assistant was medically necessary to complete this procedure. During the surgical case the surgical garment inspector was working at the back table and the physician kindergarten teacher assistant was directly assisting me. Operation and Findings: Implants used: Synthes Plan of activity: Nonweightbearing on right arm and bilateral lower extremities Patient was seen and evaluated preoperatively and found to have a displaced distal radius fracture, radial shaft fracture, and pelvic ring disruption.. Informed consent was obtained after detailed discussion of risk and benefits including bleeding, infection, injury to arteries, nerves, and blood vessels, weakness and numbness of hand, and tendon rupture. Informed consent was obtained. Patient received IV antibiotics prior to incision. Timeout procedure was performed. The right arm and pelvic region were prepped with alcohol followed by Hibiclens and draped usual sterile fashion. Procedure began with attention turned towards the pelvis. A small incision was made over bilateral anterior inferior iliac spines. Fluoroscopy was used to localize the super acetabular pin position. Pin sites were predrilled. Synthes [place]-coated pins were now placed. Fluoroscopy confirmed appropriate pin placement. An external fixator construct was now created. At this point attention was turned towards reduction of the pelvis. The pelvic fractures were manipulated. The pubic symphysis was reduced. External fixator was tightened to hold reduction. Fluoroscopy revealed appropriate alignment of pelvic fractures. Next attention was turned towards the radial fractures. A standard volar approach to the radius was utilized. A portion of the traumatic laceration was incorporated into the incision. A 9 inch incision was made over the FCR tendon. Tendon sheath was opened. The radial artery was visualized. Distally it was noted that the radial artery was avulsed near the wrist crease. There is no active bleeding from the artery. Pronator quadratus was elevated up. The fracture site was now visualized. The fracture did have intra-articular extension. At this point attention was turned towards irrigation and debridement of the open fractures. Curettes and rongeurs were used to debride the bone. Multiple small bone fragments were excised. After thorough debridement wound was thoroughly irrigated with sterile saline. At this point attention was turned towards open reduction internal fixation of the distal radius fracture as well as a radial shaft fracture. There was comminution of the articular surface and radial shaft. The external fixator was adjusted to help hold appropriate alignment. The articular surface fragments were reduced first. Traction was applied. The articular surface was reduced. Fracture fragments were manipulated to achieve excellent reduction. K wires were used to hold provisional fixation. Fluoroscopy confirmed appropriate alignment of fracture. At this point attention was turned towards the radial shaft. The radial shaft fracture fragments were manipulated. Excellent reduction was achieved. K wires were used to hold provisional fixation. A long distal radius plate was selected to span all fractures. Plate was provisionally fixed to bone with K wires. 2.7 and 2.4 cortical screws were used to compress plate to bone. Fluoroscopy confirmed appropriate alignment of fracture with well-placed hardware. Multiple 2.4 locking screws were now placed distally. Screws were predrilled and measured for appropriate length. 2 additional screws were placed into the shaft. K wires were removed. Final fluoroscopy revealed excellent of fracture with well-placed hardware. The wound was thoroughly irrigated with sterile saline. 10 cc of Vivagen bone graft were used to fill the void in the metaphyseal region. Subcutaneous tissue was closed with 3-0 PDS and skin was closed with 3-0 nylon. The area of traumatic laceration on the volar aspect of the wrist did not completely closed. A wound VAC dressing was placed over the open wound and incision. Sterile dressings were applied with Xeroform, 4 x 4, soft roll, and a well padded volar splint. Patient was transferred to intensive care in stable condition Romel Gaines MD Jan 14, 2018 14:00
[2018-01-14] MEDS ORDERED: DO NOT ADM ANY ANTICOAGULANT DRUGS PRN (14:37)
[2018-01-14] MEDS ORDERED: MORPHINE SULFATE 4 MG/ML INJ ONE (14:42)
[2018-01-14] MEDS ORDERED: MIDAZOLAM HCL 2 MG/2 ML VIAL ONE (14:42)
[2018-01-14] MEDS ORDERED: *ONDANSETRON 4 MG VIAL PERIprocedural Use ONLY ONE (14:48)
[2018-01-14] MEDS ORDERED: *MEPERIDINE 25 MG INJ VIAL PERIprocedural Use ONLY ONE (14:48)
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
--- NOTE | 2018-01-14 15:30 | RADRPT ---
EXAM DATE/TIME: 01/14/2018 11:45 [facility] COMPARISON: CHEST SINGLE AP, January 14, 2018, 5:35. INDICATIONS : External fixation pelvis. MEDICAL HISTORY : None. SURGICAL HISTORY : None. ENCOUNTER: Initial ACUITY: 1 day PAIN SCORE: Non-responsive. LOCATION: Bilateral Pelvis FINDINGS: Intraoperative examination demonstrates placement of an external fixator. There is been realignment o f the pubic symphysis. Again noted is a fracture of the superior ischial ramus bilaterally. CONCLUSION: 1. There is good alignment of the pubic symphysis post external fixator placement. Fidel Mendez MD on January 14, 2018 at 15:25 Board Certified Radiologist. This report was verified electronically.
--- NOTE | 2018-01-14 15:34 | RADRPT ---
EXAM DATE/TIME: 01/14/2018 13:25 [facility] COMPARISON: PELVIS AP ONLY, January 14, 2018, 11:45. INDICATIONS : Open reduction internal fixation right forearm. MEDICAL HISTORY : None. SURGICAL HISTORY : None. ENCOUNTER: Initial ACUITY: 1 day PAIN SCORE: Non-responsive. LOCATION: Right Forearm. FINDINGS: The examination demonstrates a severely comminuted fracture of the distal right radius. There is good alignment of the fracture fragments post plating. Note is made of a displaced ulnar styloid fracture as well. The carpus appears intact. CONCLUSION: 1. Severely comminuted fracture the distal radius. The fracture fragments are well aligned post plati ng. 2. Displaced fracture of the ulnar styloid. Fidel Mendez MD on January 14, 2018 at 15:31 Board Certified Radiologist. This report was verified electronically.
[2018-01-14] MEDS: HYDROmorphone HCL PF 2 MG/ML VIAL IV PUSH PRN ×2 (16:00→20:45)
[2018-01-14] MEDS: ceFAZolin 2 GM PREMIX 50 ML IV SCH (17:00)
[2018-01-14] MEDS ORDERED: GENTAMICIN 80 MG PREMIX 100 ML IV SCH (18:00)
[2018-01-15] VITALS (14 sets, daily range): BP systolic 109–149; BP diastolic 57–80; PULSE 59–92; RESP 16–23; TEMP 98.2–99.3; O2SAT 95–100
[2018-01-15] MEDS: oxyCODONE HCL ORAL CONC 5 MG/0.25 ML SYRINGE PO SCH ×4 (00:25→23:42)
[2018-01-15] MEDS: ceFAZolin 2 GM PREMIX 50 ML IV SCH ×4 (00:25→23:43)
[2018-01-15] MEDS ORDERED: PHARMACY ORDERED LAB ONE (00:45)
[2018-01-15] MEDS: LACTULOSE SYRUP 20 GM/30 ML CUP PO SCH ×4 (03:00→20:01)
[2018-01-15] MEDS: RESP: ALBUTEROL 2.5 MG/IPRATROPIUM 0.5 MG NEB (SCH) NEB ×2 (03:07→09:32)
[2018-01-15] MEDS: VANCOMYCIN INJ 1,500 MG in SODIUM CHLORID 0.9% 500 ML INJ 500 ML IV SCH (03:08)
[2018-01-15] MEDS: CHLORHEXIDINE GLUCONATE 2 % 1 PACK (2 CLOTHS) TOP SCH (03:08)
[2018-01-15] MEDS: METOCLOPRAMIDE HCL 10 MG/2 ML VIAL IV PUSH SCH ×4 (04:23→20:05)
[2018-01-15 05:38] LABS: AUTOMATED NEUTROPHIL # 5.7 TH/MM3 (1.8-7.7); BASOPHIL % 0.1 % (0.0-2.0); EOSINOPHIL % 0.2 % (0.0-4.0); HEMATOCRIT 30.1 % (39.0-51.0); HEMOGLOBIN 10.2 GM/DL (13.0-17.0); LYMPH % 4.6 % (9.0-44.0); LYMPHOCYTE # 0.3 TH/MM3 (1.0-4.8); MEAN CELL VOLUME 94.2 FL (80.0-100.0); MEAN CORPUSCULAR HEMOGLOBIN 31.8 PG (27.0-34.0); MEAN CORPUSCULAR HGB CONC 33.8 % (32.0-36.0); MEAN PLATELET VOLUME 8.4 FL (7.0-11.0); MONO % 14.4 % (0.0-8.0); NEUT % 80.7 % (16.0-70.0); PLATELET COUNT 118 TH/MM3 (150-450); RED BLOOD COUNT 3.19 MIL/MM3 (4.50-5.90); RED CELL DISTRIBUTION WIDTH 16.5 % (11.6-17.2)
[2018-01-15 06:09] LABS: ALT (GPT) 61 U/L (12-78); AST (GOT) 39 U/L (15-37); BICARBONATE 28.2 MEQ/L (21.0-32.0); BLOOD UREA NITROGEN 20 MG/DL (7-18); CALCIUM 7.7 MG/DL (8.5-10.1); CHLORIDE 104 MEQ/L (98-107); CREATININE 0.53 MG/DL (0.60-1.30); GLOMERULAR FILTRATION RATE 165 ML/MIN (>89); GLUCOSE,RANDOM 118 MG/DL (74-106); SODIUM (NA) 138 MEQ/L (136-145)
[2018-01-15 06:11] LABS: ALKALINE PHOSPHATASE 84 U/L (45-117); TOTAL BILIRUBIN ADULT 0.7 MG/DL (0.2-1.0)
[2018-01-15] MEDS: GENTAMICIN INJ 80 MG in SODIUM CHLORIDE 0.9% INJ 100 ML IV SCH ×3 (06:18→20:00)
[2018-01-15] MEDS: ARTIFICIAL TEARS OPTH SOLN 15 ML BTL EACH EYE SCH ×3 (06:18→20:01)
[2018-01-15] MEDS: HYDROmorphone HCL PF 2 MG/ML VIAL IV PUSH PRN ×4 (06:18→22:08)
[2018-01-15] MEDS: CHLORHEXIDINE 0.12% (ORAL KIT) 15 ML CUP MT SCH ×2 (08:00→20:01)
[2018-01-15] MEDS: LACTATED RINGER'S 1000 ML INJ 1,000 ML IV SCH ×2 (08:20→17:12)
[2018-01-15] MEDS: DOCUSATE SODIUM 50 MG/SENNA 8.6 MG TAB PO SCH ×2 (08:27→20:01)
[2018-01-15] MEDS: LANSOPRAZOLE SOLUTAB 30 MG TAB NG SCH (08:27)
[2018-01-15] MEDS: BISACODYL 10 MG SUPP RECTAL SCH (08:27)
[2018-01-15] MEDS: BACITRACIN TOP OINT 15 GM TUBE TOP SCH ×2 (08:28→20:01)
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
[2018-01-15] MEDS: VANCOMYCIN INJ 2,000 MG in SODIUM CHLORID 0.9% 500 ML INJ 500 ML IV SCH (13:15)
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
[2018-01-16] VITALS (14 sets, daily range): BP systolic 113–139; BP diastolic 58–75; PULSE 70–120; RESP 17–22; TEMP 98.2–99.5; O2SAT 93–100
[2018-01-16] MEDS: VANCOMYCIN INJ 2,000 MG in SODIUM CHLORID 0.9% 500 ML INJ 500 ML IV SCH ×2 (00:55→12:54)
--- NOTE | 2018-01-16 01:53 | RADRPT ---
EXAM DATE/TIME: 01/16/2018 01:25 [facility] COMPARISON: CHEST SINGLE AP, January 14, 2018, 5:35. INDICATIONS : Respiratory distress. MEDICAL HISTORY : None. SURGICAL HISTORY : None. ENCOUNTER: Subsequent ACUITY: 1 week PAIN SCORE: Non-responsive. LOCATION: Bilateral chest FINDINGS: A single portable frontal view the chest shows some improvement in the left lower lobe infiltrate. Ri ght lung is clear. No effusions. Heart mildly enlarged. Tracheostomy tube. CONCLUSION: Improving left lung infiltrate. Mansoor Elmore Jr., MD on January 16, 2018 at 1:51 Board Certified Radiologist. This report was verified electronically.
[2018-01-16] MEDS: HYDROmorphone HCL PF 2 MG/ML VIAL IV PUSH PRN ×3 (02:15→17:45)
[2018-01-16] MEDS: LACTULOSE SYRUP 20 GM/30 ML CUP PO SCH ×4 (03:00→23:48)
[2018-01-16 03:53] LABS: AUTOMATED NEUTROPHIL # 4.7 TH/MM3 (1.8-7.7); BASOPHIL % 0.1 % (0.0-2.0); EOSINOPHIL # 0.1 TH/MM3 (0-0.4); EOSINOPHIL % 1.7 % (0.0-4.0); HEMATOCRIT 27.2 % (39.0-51.0); HEMOGLOBIN 9.3 GM/DL (13.0-17.0); LYMPH % 9.8 % (9.0-44.0); LYMPHOCYTE # 0.6 TH/MM3 (1.0-4.8); MEAN CELL VOLUME 92.2 FL (80.0-100.0); MEAN CORPUSCULAR HEMOGLOBIN 31.7 PG (27.0-34.0); MEAN CORPUSCULAR HGB CONC 34.4 % (32.0-36.0); MEAN PLATELET VOLUME 7.9 FL (7.0-11.0); MONO % 17.5 % (0.0-8.0); MONOCYTE # 1.1 TH/MM3 (0-0.9); NEUT % 70.9 % (16.0-70.0); PLATELET COUNT 146 TH/MM3 (150-450); RED BLOOD COUNT 2.95 MIL/MM3 (4.50-5.90); RED CELL DISTRIBUTION WIDTH 16.6 % (11.6-17.2); WHITE BLOOD COUNT 6.6 TH/MM3 (4.0-11.0)
[2018-01-16] MEDS: CHLORHEXIDINE GLUCONATE 2 % 1 PACK (2 CLOTHS) TOP SCH (04:00)
[2018-01-16] MEDS: ARTIFICIAL TEARS OPTH SOLN 15 ML BTL EACH EYE SCH ×3 (04:26→23:50)
[2018-01-16] MEDS: GENTAMICIN INJ 80 MG in SODIUM CHLORIDE 0.9% INJ 100 ML IV SCH ×2 (04:26→12:00)
[2018-01-16] MEDS: METOCLOPRAMIDE HCL 10 MG/2 ML VIAL IV PUSH SCH ×3 (04:26→23:49)
[2018-01-16 04:27] LABS: ALBUMIN 1.9 GM/DL (3.4-5.0); BICARBONATE 28.9 MEQ/L (21.0-32.0); CALCIUM 7.2 MG/DL (8.5-10.1); CALCIUM-PROTEIN CORRECTED 8.5 MG/DL (8.5-10.1); CREATININE 0.45 MG/DL (0.60-1.30); TOTAL BILIRUBIN ADULT 0.7 MG/DL (0.2-1.0); TOTAL PROTEIN 4.8 GM/DL (6.4-8.2)
[2018-01-16] MEDS: LACTATED RINGER'S 1000 ML INJ 1,000 ML IV SCH (04:27)
[2018-01-16] MEDS: oxyCODONE HCL ORAL CONC 5 MG/0.25 ML SYRINGE PO SCH ×3 (07:59→23:48)
[2018-01-16] MEDS: CHLORHEXIDINE 0.12% (ORAL KIT) 15 ML CUP MT SCH (07:59)
[2018-01-16] MEDS: LANSOPRAZOLE SOLUTAB 30 MG TAB NG SCH (08:00)
[2018-01-16] MEDS: DOCUSATE SODIUM 50 MG/SENNA 8.6 MG TAB PO SCH ×2 (08:00→21:00)
[2018-01-16] MEDS: BACITRACIN TOP OINT 15 GM TUBE TOP SCH (08:00)
[2018-01-16] MEDS: BISACODYL 10 MG SUPP RECTAL SCH (08:00)
[2018-01-16] MEDS: ceFAZolin 2 GM PREMIX 50 ML IV SCH ×2 (08:00→16:34)
--- NOTE | 2018-01-16 08:02 | PD.ORT.PN ---
Subjective Subjective Remarks s/p ORIF right BBFA and Wrist with exfix and application of vac - POD 2 s/p Exfix of pubic symphysis doing well. pain controlled. Objective Vitals Vital Signs Date Time Temp Pulse Resp B/P (MAP) Pulse Ox O2 Delivery O2 Flow Rate FiO2 01/16/18 06:00 70 01/16/18 04:00 99.0 87 22 128/60 (82) 99 01/16/18 04:00 87 01/16/18 02:00 85 01/16/18 00:00 72 01/16/18 00:00 98.8 72 19 113/58 (76) 97 01/15/18 22:00 71 01/15/18 20:00 79 01/15/18 20:00 99.1 79 23 130/66 (87) 100 01/15/18 19:37 99 Trach Collar 28 01/15/18 19:00 100 Trach Collar 3.00 01/15/18 18:00 90 01/15/18 16:00 75 01/15/18 16:00 99.1 84 20 149/76 (100) 97 01/15/18 14:00 79 01/15/18 12:00 99.3 83 22 130/63 (85) 100 01/15/18 12:00 83 01/15/18 10:00 92 01/15/18 09:34 100 T-piece 4.00 28 01/15/18 08:00 82 01/15/18 08:00 98.4 82 18 140/80 (100) 100 I/O 01/15/18 01/15/18 01/15/18 01/16/18 01/16/18 01/16/18 07:00 15:00 23:00 07:00 15:00 23:00 Intake Total 4017 ml 431 ml Output Total 1350 ml 1250 ml 1200 ml Balance -1350 ml 2767 ml -769 ml IV Total 4017 ml Tube Irrigant 311 ml Other 120 ml Output Urine Total 1225 ml 1250 ml 1200 ml Gastric Drainage Total 100 ml Drainage Total 25 ml 0 ml 0 ml # Bowel Movements 0 0 0 Result Diagram: 01/16/1831801/16/18318 Imaging Last 24 hours Impressions Chest X-Ray 01/08/18 06 Signed Impressions: Service Date/Time: Monday, January 08, 2018 05:11 - CONCLUSION: Stable chest x-ray. No pneumothorax or acute pulmonary abnormality is seen. Esequiel García MD Pelvis X-Ray 01/07/18750 Signed Impressions: Service Date/Time: Sunday, January 07, 2018 07:47 - CONCLUSION: 1. Diastasis of the pubic symphysis with widened left SI joint. 2. Questionable subtle nondisplaced fractures of the right inferior pubic ramus and lesser trochanter of the right femur. Saroj Carrillo MD Maxillofacial CT 01/07/18750 Signed Impressions: Service Date/Time: Sunday, January 07, 2018 08:24 - CONCLUSION: Multiple severely comminuted facial fractures as described above. Lencho Dominguez MD Head CT 01/07/18750 Signed Impressions: Service Date/Time: Sunday, January 07, 2018 08:24 - CONCLUSION: 1. No focal or acute intracranial hemorrhage. 2. Multiple comminuted facial fractures. Lencho Dominguez MD Chest X-Ray 01/07/18750 Signed Impressions: Service Date/Time: Sunday, January 07, 2018 07:47 - CONCLUSION: 1. Increased lucency near the left lung base, likely artifactual, although a small left subpulmonic pneumothorax cannot be entirely excluded. Saroj Carrillo MD Chest CT 01/07/18750 Signed Impressions: Service Date/Time: Sunday, January 07, 2018 08:24 - CONCLUSION: 1. Minimal bibasilar airspace disease, more prominently on the right. Differential considerations include pulmonary contusions versus atelectasis. 2. Subtle cortical step-off in the inferior scapula. Suspect this reflects an old injury. Correlation with physical exam and history is recommended. Saroj Carrillo MD Cervical Spine CT 01/07/18750 Signed Impressions: Service Date/Time: Sunday, January 07, 2018 08:24 - CONCLUSION: 1. No acute fracture or subluxation. Saroj Carrillo MD Abdomen/Pelvis CT 01/07/18750 Signed Impressions: Service Date/Time: Sunday, January 07, 2018 08:24 - CONCLUSION: 1. Small focal nonspecific defect in the superior lateral spleen. This may just be flow artifact. Small splenic laceration would be a second possibility. However, there is no fluid surrounding the spleen and there is no fluid in the abdomen or pelvic. 2. There is some diastases of the pubic symphysis. There is a fracture involving the anterior portion of the right acetabulum with the fracture line extending into the right ischium. There is also a fracture involving the right inferior pubic ramus. 3. There is a hematoma along the anterior lateral aspect of urinary bladder which is most likely related to the pelvic fractures. Lencho Dominguez MD Objective Remarks Right upper extremity: exfix in place. pin sites clean. no drainage. good cap refill/ vac present in good repair. compartments soft. +colleys sling Left upper extremity: No laxity with shoulder elbow or wrist. Distally capillary refills and good distal pulses Bilateral lower extremities: No laxity with hip knee or ankles bilaterally. Distally intact distal pulses. pelvic exfix in place. pin site clean and dry. Assessment & Plan Assessment and Plan 1) Severely comminuted right distal radius open fracture with dislocation of distal radial ulnar joint s/p I&D with ORIF and vac application - POD 2 2) s/p disruption of pubic symphysis s/p application of exfix - POD 2 3) s/p right elbow injury Maintain exfix pin care BID DC colleys sling today maintain vac will discuss with Margaux regarding vac and wound NWB to CALEB and Andry Valadez/First Vickie SPARKS Jan 16, 2018 08:02
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
[2018-01-16] MEDS ORDERED: REMOVE OLD DURAGESIC (FENTANYL) PATCH T-DERMAL SCH (12:00)
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
[2018-01-16] MEDS: fentaNYL 50 MCG/HR PATCH T-DERMAL SCH (15:46)
[2018-01-16] MEDS: REMOVE OLD DURAGESIC (FENTANYL) PATCH T-DERMAL SCH (15:46)
[2018-01-16] MEDS: ENOXAPARIN SODIUM 30 MG/0.3 ML SYRINGE SQ SCH (21:45)
[2018-01-17] VITALS (8 sets, daily range): BP systolic 103–117; BP diastolic 57–65; PULSE 81–90; RESP 16–17; TEMP 95.6–97.3; O2SAT 96–100
[2018-01-17] MEDS: BACITRACIN TOP OINT 15 GM TUBE TOP SCH ×3 (00:07→23:06)
[2018-01-17] MEDS: CHLORHEXIDINE 0.12% (ORAL KIT) 15 ML CUP MT SCH ×2 (00:08→23:20)
[2018-01-17] MEDS: CHLORHEXIDINE GLUCONATE 2 % 1 PACK (2 CLOTHS) TOP SCH (00:08)
[2018-01-17] MEDS: ceFAZolin 2 GM PREMIX 50 ML IV SCH ×3 (00:08→17:45)
[2018-01-17] MEDS ORDERED: PHARMACY ORDERED LAB ONE ×2 (00:45→12:45)
[2018-01-17] MEDS: SODIUM CHLORIDE 0.9% FLUSH 10 ML FLUSH IV FLUSH PRN (02:11)
[2018-01-17] MEDS: VANCOMYCIN INJ 2,000 MG in SODIUM CHLORID 0.9% 500 ML INJ 500 ML IV SCH (02:11)
[2018-01-17] MEDS: LACTULOSE SYRUP 20 GM/30 ML CUP PO SCH ×4 (02:15→22:30)
[2018-01-17 03:58] LABS: AUTOMATED NEUTROPHIL # 5.9 TH/MM3 (1.8-7.7); BASOPHIL % 0.2 % (0.0-2.0); EOSINOPHIL # 0.1 TH/MM3 (0-0.4); EOSINOPHIL % 1.1 % (0.0-4.0); HEMATOCRIT 27.3 % (39.0-51.0); HEMOGLOBIN 9.8 GM/DL (13.0-17.0); LYMPH % 11.8 % (9.0-44.0); MEAN CELL VOLUME 91.6 FL (80.0-100.0); MEAN CORPUSCULAR HEMOGLOBIN 32.8 PG (27.0-34.0); MEAN CORPUSCULAR HGB CONC 35.8 % (32.0-36.0); MEAN PLATELET VOLUME 7.8 FL (7.0-11.0); MONO % 14.7 % (0.0-8.0); MONOCYTE # 1.2 TH/MM3 (0-0.9); NEUT % 72.2 % (16.0-70.0); PLATELET COUNT 183 TH/MM3 (150-450); RED BLOOD COUNT 2.98 MIL/MM3 (4.50-5.90); RED CELL DISTRIBUTION WIDTH 16.5 % (11.6-17.2); WHITE BLOOD COUNT 8.1 TH/MM3 (4.0-11.0)
[2018-01-17 04:21] LABS: ALBUMIN 1.9 GM/DL (3.4-5.0); ALT (GPT) 67 U/L (12-78); AST (GOT) 35 U/L (15-37); BICARBONATE 29.3 MEQ/L (21.0-32.0); BLOOD UREA NITROGEN 15 MG/DL (7-18); CALCIUM 7.6 MG/DL (8.5-10.1); CHLORIDE 103 MEQ/L (98-107); CREATININE 0.46 MG/DL (0.60-1.30); GLOMERULAR FILTRATION RATE 195 ML/MIN (>89); GLUCOSE,RANDOM 112 MG/DL (74-106); SODIUM (NA) 139 MEQ/L (136-145)
[2018-01-17 04:23] LABS: ALKALINE PHOSPHATASE 100 U/L (45-117); TOTAL BILIRUBIN ADULT 0.7 MG/DL (0.2-1.0); TOTAL PROTEIN 4.8 GM/DL (6.4-8.2); VANCOMYCIN TROUGH 20.8 MCG/ML (5.0-10.0)
[2018-01-17] MEDS: METOCLOPRAMIDE HCL 10 MG/2 ML VIAL IV PUSH SCH ×3 (06:28→22:29)
[2018-01-17] MEDS: ARTIFICIAL TEARS OPTH SOLN 15 ML BTL EACH EYE SCH ×3 (06:28→23:05)
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
[2018-01-17] MEDS: DOCUSATE SODIUM 50 MG/SENNA 8.6 MG TAB PO SCH ×2 (10:00→22:30)
[2018-01-17] MEDS: BISACODYL 10 MG SUPP RECTAL SCH (10:00)
[2018-01-17] MEDS: LANSOPRAZOLE SOLUTAB 30 MG TAB NG SCH (10:01)
[2018-01-17] MEDS: ENOXAPARIN SODIUM 30 MG/0.3 ML SYRINGE SQ SCH ×2 (10:01→22:29)
[2018-01-17] MEDS: oxyCODONE HCL ORAL CONC 5 MG/0.25 ML SYRINGE PO SCH ×3 (10:01→23:04)
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
--- NOTE | 2018-01-17 13:53 | PD.ORT.PN ---
Subjective Subjective Remarks Resting comfortably with no new complaints Objective Vitals Vital Signs Date Time Temp Pulse Resp B/P (MAP) Pulse Ox O2 Delivery O2 Flow Rate FiO2 01/17/18 12:00 96.4 88 16 115/62 (79) 99 01/17/18 10:14 97 T-piece 28 01/17/18 08:00 95.8 86 16 103/57 (72) 97 01/17/18 05:00 96.8 87 17 111/60 (77) 96 01/17/18 04:11 81 01/17/18 00:00 93 Trach Collar 2.00 Humidified 01/17/18 00:00 95.6 90 17 112/65 (81) 96 01/16/18 23:59 100 01/16/18 22:22 99 01/16/18 20:12 96 T-piece 4.00 28 01/16/18 20:00 99.1 120 19 133/73 (93) 93 01/16/18 20:00 98.2 89 17 128/67 (87) 98 01/16/18 18:00 90 01/16/18 16:00 99.5 114 20 139/69 (92) 98 01/16/18 16:00 114 01/16/18 14:00 90 I/O 01/16/18 01/16/18 01/16/18 01/17/18 01/17/18 01/17/18 07:00 15:00 23:00 07:00 15:00 23:00 Intake Total 431 ml 180 ml 50 ml Output Total 1200 ml 2000 ml 750 ml Balance -769 ml -1820 ml -700 ml Intake Oral 180 ml 0 ml IV Total 50 ml Tube Irrigant 311 ml Other 120 ml Output Urine Total 1200 ml 2000 ml 750 ml Drainage Total 0 ml 0 ml # Bowel Movements 0 Result Diagram: 01/17/18 0338 01/17/18 0338 Imaging Last 24 hours Impressions Chest X-Ray 01/08/18 0600 Signed Impressions: Service Date/Time: Monday, January 08, 2018 05:11 - CONCLUSION: Stable chest x-ray. No pneumothorax or acute pulmonary abnormality is seen. Esequiel García MD Pelvis X-Ray 01/07/18 9941 Signed Impressions: Service Date/Time: Sunday, January 07, 2018 07:47 - CONCLUSION: 1. Diastasis of the pubic symphysis with widened left SI joint. 2. Questionable subtle nondisplaced fractures of the right inferior pubic ramus and lesser trochanter of the right femur. Saroj Carrillo MD Maxillofacial CT 01/07/18750 Signed Impressions: Service Date/Time: Sunday, January 07, 2018 08:24 - CONCLUSION: Multiple severely comminuted facial fractures as described above. Lencho Dominguez MD Head CT 01/07/18750 Signed Impressions: Service Date/Time: Sunday, January 07, 2018 08:24 - CONCLUSION: 1. No focal or acute intracranial hemorrhage. 2. Multiple comminuted facial fractures. Lencho Dominguez MD Chest X-Ray 01/07/18750 Signed Impressions: Service Date/Time: Sunday, January 07, 2018 07:47 - CONCLUSION: 1. Increased lucency near the left lung base, likely artifactual, although a small left subpulmonic pneumothorax cannot be entirely excluded. Saroj Carrillo MD Chest CT 01/07/18750 Signed Impressions: Service Date/Time: Sunday, January 07, 2018 08:24 - CONCLUSION: 1. Minimal bibasilar airspace disease, more prominently on the right. Differential considerations include pulmonary contusions versus atelectasis. 2. Subtle cortical step-off in the inferior scapula. Suspect this reflects an old injury. Correlation with physical exam and history is recommended. Saroj Carrillo MD Cervical Spine CT 01/07/18750 Signed Impressions: Service Date/Time: Sunday, January 07, 2018 08:24 - CONCLUSION: 1. No acute fracture or subluxation. Saroj Carrillo MD Abdomen/Pelvis CT 01/07/18750 Signed Impressions: Service Date/Time: Sunday, January 07, 2018 08:24 - CONCLUSION: 1. Small focal nonspecific defect in the superior lateral spleen. This may just be flow artifact. Small splenic laceration would be a second possibility. However, there is no fluid surrounding the spleen and there is no fluid in the abdomen or pelvic. 2. There is some diastases of the pubic symphysis. There is a fracture involving the anterior portion of the right acetabulum with the fracture line extending into the right ischium. There is also a fracture involving the right inferior pubic ramus. 3. There is a hematoma along the anterior lateral aspect of urinary bladder which is most likely related to the pelvic fractures. Lencho Dominguez MD Objective Remarks Right upper extremity: exfix in place. pin sites clean. no drainage. Wound VAC removed revealing surgical incision healing well with swelling is improved. He still has a portion of approximately 2 x 3 cm of exposed muscle over the radial styloid. New wound VAC is applied. [employer] to apply a long arm splint Left upper extremity: No laxity with shoulder elbow or wrist. Distally capillary refills and good distal pulses Bilateral lower extremities: No laxity with hip knee or ankles bilaterally. Distally intact distal pulses. pelvic exfix in place. pin site clean and dry. Assessment & Plan Assessment and Plan 1) Severely comminuted right distal radius open fracture with dislocation of distal radial ulnar joint s/p I&D with ORIF and vac application - POD 3 2) s/p disruption of pubic symphysis s/p application of exfix - POD 3 3) s/p right elbow injury Maintain exfix pin care BID maintain vac We'll plan on Saturday for possible wound closure versus skin graft to right wrist NWB to CALEB and Antoine Fields Jr. Jan 17, 2018 13:53
[2018-01-17] MEDS: HYDROmorphone HCL PF 2 MG/ML VIAL IV PUSH PRN (15:17)
[2018-01-18] VITALS (8 sets, daily range): BP systolic 108–123; BP diastolic 56–64; PULSE 82–92; RESP 16–20; TEMP 97.3–98.5; O2SAT 96–99
[2018-01-18] MEDS: SODIUM CHLORIDE 0.9% FLUSH 10 ML FLUSH IV FLUSH PRN ×2 (01:28→05:19)
[2018-01-18] MEDS: ceFAZolin 2 GM PREMIX 50 ML IV SCH ×3 (01:28→16:38)
[2018-01-18] MEDS: LACTULOSE SYRUP 20 GM/30 ML CUP PO SCH ×2 (03:00→09:02)
[2018-01-18] MEDS: VANCOMYCIN INJ 2,250 MG in SODIUM CHLORID 0.9% 500 ML INJ 500 ML IV SCH ×3 (05:19→16:38)
[2018-01-18] MEDS: METOCLOPRAMIDE HCL 10 MG/2 ML VIAL IV PUSH SCH ×3 (05:19→20:38)
[2018-01-18] MEDS: ARTIFICIAL TEARS OPTH SOLN 15 ML BTL EACH EYE SCH ×3 (05:20→20:39)
[2018-01-18] MEDS: CHLORHEXIDINE 0.12% (ORAL KIT) 15 ML CUP MT SCH ×2 (08:00→20:00)
[2018-01-18] MEDS: BACITRACIN TOP OINT 15 GM TUBE TOP SCH ×2 (09:00→20:39)
[2018-01-18] MEDS: MAGNESIUM HYDROXIDE SUSP 30 ML CUP PO SCH ×2 (09:02→20:36)
[2018-01-18] MEDS: DOCUSATE SODIUM 50 MG/SENNA 8.6 MG TAB PO SCH ×2 (09:03→20:37)
[2018-01-18] MEDS: LANSOPRAZOLE SOLUTAB 30 MG TAB NG SCH (09:03)
[2018-01-18] MEDS: BISACODYL 10 MG SUPP RECTAL SCH (09:03)
[2018-01-18] MEDS: oxyCODONE HCL ORAL CONC 5 MG/0.25 ML SYRINGE PO SCH ×3 (09:04→23:25)
[2018-01-18] MEDS: ENOXAPARIN SODIUM 30 MG/0.3 ML SYRINGE SQ SCH ×2 (09:07→20:38)
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
[2018-01-18] MEDS: HYDROmorphone HCL PF 2 MG/ML VIAL IV PUSH PRN (20:33)
--- NOTE | 2018-01-18 22:11 | RADRPT ---
EXAM DATE/TIME: 01/18/2018 20:51 [facility] COMPARISON: No previous studies available for comparison. INDICATIONS : Bilateral leg swelling. MEDICAL HISTORY : Renal calculi. SURGICAL HISTORY : Knee surgery. ENCOUNTER: Initial ACUITY: 1 week PAIN SCORE: 4/10 LOCATION: Bilateral leg. TECHNIQUE: Venous ultrasound of the left and right leg was performed from the inguinal ligament to the proximal calf. Real-time, color Doppler and spectral tracing, compression and augmentation techniques were us ed. FINDINGS: RIGHT LEG: There is normal compressibility of the deep venous system from the inguinal region to the proximal ca lf. No echogenic clot is seen in the lumen of the common femoral, femoral, popliteal, and posterior tibial veins. There is a normal response of the venous system to proximal and distal augmentation an d respiration. LEFT LEG: There is normal compressibility of the deep venous system from the inguinal region to the proximal ca lf. No echogenic clot is seen in the lumen of the common femoral, femoral, popliteal, and posterior tibial veins. There is a normal response of the venous system to proximal and distal augmentation an d respiration. CONCLUSION: 1. No DVT identified. Fidel Mendez MD on January 18, 2018 at 22:08 Board Certified Radiologist. This report was verified electronically.
--- NOTE | 2018-01-18 22:46 | RADRPT ---
EXAM DATE/TIME: 01/18/2018 21:08 [facility] COMPARISON: No previous studies available for comparison. INDICATIONS : Bilateral arm swelling. MEDICAL HISTORY : Renal calculi. SURGICAL HISTORY : Knee surgery. ENCOUNTER: Initial ACUITY: 1 week PAIN SCORE: 4/10 LOCATION: Bilateral arm. FINDINGS: RIGHT UPPER EXTREMITY: Cast over the right arm limited visualization of the deep venous vasculature. However, is spontaneous flow documented in the visualized portions of the brachial, basilic, cephalic, axillary, and subclav nicole veins. The vessels are compressible and augmentation response is documented. No filling defects are seen. The flow is phasic with respiration. Direction of flow in the jugular vein is caudal. LEFT UPPER EXTREMITY: Occlusive thrombus identified in the mid basilic vein extending peripherally into the forearm. In add ition, occlusive thrombus is identified in the cephalic vein from the wrist to the antecubital fossa. CONCLUSION: 1. Occlusive deep and superficial venous thrombosis in the left upper extremity. This involves the mi d basilic vein and extends into the forearm with superficial thrombus in the cephalic vein from the a ntecubital fossa peripherally to the wrist. 2. Limited visualization of the right upper extremity due to overlying casting material. No obvious D VT/SVT in the vessels visualized, however Malik Arreguin MD on January 18, 2018 at 22:40 Board Certified Radiologist. This report was verified electronically.
[2018-01-19] VITALS (10 sets, daily range): BP systolic 109–148; BP diastolic 55–74; PULSE 69–87; RESP 16–21; TEMP 96.3–97.6; O2SAT 95–100
[2018-01-19] MEDS: ceFAZolin 2 GM PREMIX 50 ML IV SCH ×2 (02:57→10:17)
[2018-01-19] MEDS ORDERED: PHARMACY ORDERED LAB ONE (05:45)
[2018-01-19] MEDS: ARTIFICIAL TEARS OPTH SOLN 15 ML BTL EACH EYE SCH ×3 (06:00→21:07)
[2018-01-19] MEDS: VANCOMYCIN INJ 2,250 MG in SODIUM CHLORID 0.9% 500 ML INJ 500 ML IV SCH ×2 (06:28→16:28)
[2018-01-19] MEDS: METOCLOPRAMIDE HCL 10 MG/2 ML VIAL IV PUSH SCH ×3 (06:36→21:00)
[2018-01-19] MEDS: CHLORHEXIDINE 0.12% (ORAL KIT) 15 ML CUP MT SCH ×2 (08:00→20:00)
[2018-01-19] MEDS ORDERED: PREV30TA3 NG (08:10)
[2018-01-19] MEDS ORDERED: QC B500O TOP (08:10)
[2018-01-19] MEDS ORDERED: Lactulose Liq PO (08:10)
[2018-01-19] MEDS ORDERED: MAGN30S PO (08:10)
[2018-01-19] MEDS ORDERED: Simethicone Chew CHEW (08:10)
[2018-01-19] MEDS ORDERED: PERI PO (08:10)
[2018-01-19] MEDS ORDERED: FENT50T T-DERMAL (08:10)
[2018-01-19] MEDS ORDERED: oxyCODONE LIQ PO (08:10)
[2018-01-19] MEDS ORDERED: Chlorhexidine 0.12% Liq MT (08:10)
[2018-01-19] MEDS ORDERED: ENOX30P SQ (08:10)
[2018-01-19] MEDS: BISACODYL 10 MG SUPP RECTAL SCH (09:00)
[2018-01-19] MEDS: MAGNESIUM HYDROXIDE SUSP 30 ML CUP PO SCH ×2 (09:09→20:59)
[2018-01-19] MEDS: LACTULOSE SYRUP 20 GM/30 ML CUP PO SCH (09:09)
[2018-01-19] MEDS: DOCUSATE SODIUM 50 MG/SENNA 8.6 MG TAB PO SCH ×2 (09:09→21:00)
[2018-01-19] MEDS: BACITRACIN TOP OINT 15 GM TUBE TOP SCH ×2 (09:10→21:00)
[2018-01-19] MEDS: LANSOPRAZOLE SOLUTAB 30 MG TAB NG SCH (09:10)
[2018-01-19] MEDS: oxyCODONE HCL ORAL CONC 5 MG/0.25 ML SYRINGE PO SCH ×3 (09:10→21:07)
[2018-01-19] MEDS: ENOXAPARIN SODIUM 30 MG/0.3 ML SYRINGE SQ SCH ×2 (10:18→21:00)
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
[2018-01-19] MEDS: REMOVE OLD DURAGESIC (FENTANYL) PATCH T-DERMAL SCH (14:00)
[2018-01-19] MEDS: fentaNYL 50 MCG/HR PATCH T-DERMAL SCH (14:28)
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
[2018-01-19] MEDS: LEVOFLOXACIN 500 MG TAB PO SCH (18:43)
[2018-01-20] VITALS (7 sets, daily range): BP systolic 139–146; BP diastolic 63–72; PULSE 70–81; RESP 17–20; TEMP 96–97.1; O2SAT 98–100
[2018-01-20] MEDS: oxyCODONE HCL ORAL CONC 5 MG/0.25 ML SYRINGE PO SCH ×4 (04:48→23:02)
[2018-01-20] MEDS ORDERED: PHARMACY ORDERED LAB ONE (05:45)
[2018-01-20] MEDS: ARTIFICIAL TEARS OPTH SOLN 15 ML BTL EACH EYE SCH ×3 (06:00→23:16)
[2018-01-20] MEDS: METOCLOPRAMIDE HCL 10 MG/2 ML VIAL IV PUSH SCH ×3 (06:00→23:02)
[2018-01-20 06:23] LABS: AUTOMATED NEUTROPHIL # 5.3 TH/MM3 (1.8-7.7); BASOPHIL % 0.2 % (0.0-2.0); EOSINOPHIL # 0.2 TH/MM3 (0-0.4); EOSINOPHIL % 2.1 % (0.0-4.0); HEMATOCRIT 29.1 % (39.0-51.0); HEMOGLOBIN 9.8 GM/DL (13.0-17.0); LYMPH % 13.3 % (9.0-44.0); MEAN CELL VOLUME 95.1 FL (80.0-100.0); MEAN CORPUSCULAR HGB CONC 33.6 % (32.0-36.0); MEAN PLATELET VOLUME 8.1 FL (7.0-11.0); MONO % 15.2 % (0.0-8.0); MONOCYTE # 1.2 TH/MM3 (0-0.9); NEUT % 69.2 % (16.0-70.0); PLATELET COUNT 348 TH/MM3 (150-450); RED BLOOD COUNT 3.06 MIL/MM3 (4.50-5.90); RED CELL DISTRIBUTION WIDTH 17.3 % (11.6-17.2); WHITE BLOOD COUNT 7.6 TH/MM3 (4.0-11.0)
[2018-01-20] MEDS ORDERED: LACTATED RINGER'S 1000 ML IV PRN (07:00)
[2018-01-20 07:02] LABS: ALBUMIN 2.1 GM/DL (3.4-5.0); ALKALINE PHOSPHATASE 146 U/L (45-117); ALT (GPT) 37 U/L (12-78); AST (GOT) 43 U/L (15-37); BICARBONATE 29.6 MEQ/L (21.0-32.0); BLOOD UREA NITROGEN 13 MG/DL (7-18); CHLORIDE 101 MEQ/L (98-107); CREATININE 0.52 MG/DL (0.60-1.30); GLOMERULAR FILTRATION RATE 169 ML/MIN (>89); GLUCOSE,RANDOM 102 MG/DL (74-106); SODIUM (NA) 137 MEQ/L (136-145); TOTAL BILIRUBIN ADULT 0.9 MG/DL (0.2-1.0); TOTAL PROTEIN 5.7 GM/DL (6.4-8.2)
--- NOTE | 2018-01-20 07:20 | PD.ORT.PN ---
Subjective Subjective Remarks s/p ORIF right BBFA and Wrist with exfix and application of vac - POD 6 s/p Exfix of pubic symphysis doing well. pain controlled. Objective Vitals Vital Signs Date Time Temp Pulse Resp B/P (MAP) Pulse Ox O2 Delivery O2 Flow Rate FiO2 01/20/18 04:01 98 Trach Collar 5.00 28 01/20/18 04:00 97.1 71 17 141/70 (93) 100 01/20/18 00:00 96.9 73 18 146/72 (96) 100 01/19/18 22:07 20 01/19/18 20:20 87 01/19/18 20:20 Trach Collar 5.00 01/19/18 20:00 96.7 84 18 128/68 (88) 95 01/19/18 16:57 97 Trach Collar 6.00 28 01/19/18 16:00 97.6 75 16 148/74 (98) 96 01/19/18 12:00 96.5 79 18 125/60 (81) 99 01/19/18 09:15 Trach Collar 6.00 01/19/18 08:00 96.7 69 19 109/55 (73) 100 I/O 01/19/18 01/19/18 01/19/18 01/20/18 01/20/18 01/20/18 07:00 15:00 23:00 07:00 15:00 23:00 Intake Total 600 ml 0 ml Output Total 1800 ml 770 ml Balance -1800 ml -170 ml 0 ml Intake Oral 600 ml 0 ml Output Urine Total 1800 ml 770 ml # Voids 0 # Bowel Movements 0 0 Result Diagram: 01/20/18 0545 01/20/18 0545 Imaging Last 24 hours Impressions Chest X-Ray 01/08/18 0600 Signed Impressions: Service Date/Time: Monday, January 08, 2018 05:11 - CONCLUSION: Stable chest x-ray. No pneumothorax or acute pulmonary abnormality is seen. Esequiel García MD Pelvis X-Ray 01/07/18 4861 Signed Impressions: Service Date/Time: Sunday, January 07, 2018 07:47 - CONCLUSION: 1. Diastasis of the pubic symphysis with widened left SI joint. 2. Questionable subtle nondisplaced fractures of the right inferior pubic ramus and lesser trochanter of the right femur. Saroj Carrillo MD Maxillofacial CT 01/07/18750 Signed Impressions: Service Date/Time: Sunday, January 07, 2018 08:24 - CONCLUSION: Multiple severely comminuted facial fractures as described above. Lencho Dominguez MD Head CT 01/07/18750 Signed Impressions: Service Date/Time: Sunday, January 07, 2018 08:24 - CONCLUSION: 1. No focal or acute intracranial hemorrhage. 2. Multiple comminuted facial fractures. Lencho Dominguez MD Chest X-Ray 01/07/18750 Signed Impressions: Service Date/Time: Sunday, January 07, 2018 07:47 - CONCLUSION: 1. Increased lucency near the left lung base, likely artifactual, although a small left subpulmonic pneumothorax cannot be entirely excluded. Saroj Carrilol MD Chest CT 01/07/18750 Signed Impressions: Service Date/Time: Sunday, January 07, 2018 08:24 - CONCLUSION: 1. Minimal bibasilar airspace disease, more prominently on the right. Differential considerations include pulmonary contusions versus atelectasis. 2. Subtle cortical step-off in the inferior scapula. Suspect this reflects an old injury. Correlation with physical exam and history is recommended. Saroj Carrillo MD Cervical Spine CT 01/07/18750 Signed Impressions: Service Date/Time: Sunday, January 07, 2018 08:24 - CONCLUSION: 1. No acute fracture or subluxation. Saroj Carrillo MD Abdomen/Pelvis CT 01/07/18750 Signed Impressions: Service Date/Time: Sunday, January 07, 2018 08:24 - CONCLUSION: 1. Small focal nonspecific defect in the superior lateral spleen. This may just be flow artifact. Small splenic laceration would be a second possibility. However, there is no fluid surrounding the spleen and there is no fluid in the abdomen or pelvic. 2. There is some diastases of the pubic symphysis. There is a fracture involving the anterior portion of the right acetabulum with the fracture line extending into the right ischium. There is also a fracture involving the right inferior pubic ramus. 3. There is a hematoma along the anterior lateral aspect of urinary bladder which is most likely related to the pelvic fractures. Lencho Dominguez MD Objective Remarks Right upper extremity: exfix in place. pin sites clean. no drainage. Wound VAC removed revealing surgical incision healing well with swelling is improved. He still has a portion of approximately 2 x 3 cm of exposed muscle over the radial styloid. New wound VAC is applied. [employer] to apply a long arm splint Left upper extremity: No laxity with shoulder elbow or wrist. Distally capillary refills and good distal pulses Bilateral lower extremities: No laxity with hip knee or ankles bilaterally. Distally intact distal pulses. pelvic exfix in place. pin site clean and dry. Assessment & Plan Assessment and Plan 1) Severely comminuted right distal radius open fracture with dislocation of distal radial ulnar joint s/p I&D with ORIF and vac application - POD 6 2) s/p disruption of pubic symphysis s/p application of exfix - POD 6 3) s/p right elbow injury 4) Right Medial Malleolus Fx Maintain exfix pin care BID maintain vac NWB to Enedelia godwin today for I&D with possible wound closure vs skin grafting right arm and ORIF of right medial malleolus Andry Marquez/First Vickie SPARKS Jan 20, 2018 07:20
[2018-01-20 07:49] LABS: BANDS 3 % (0-6); BASOPHILS 1 % (0-2); LYMPHOCYTES 14 % (9-44); METAMYELOCYTES 1 % (0-1); MONOCYTES 14 % (0-8); MYELOCYTES 2 % (0-0); NEUTROPHIL # MANUAL DIFF 5.2 TH/MM3 (1.8-7.7); POLYS (SEG NEUTROPHILS) 63 % (16-70)
[2018-01-20 07:50] LABS: POLYCHROMASIA 2.3 % (0.0-1.9)
[2018-01-20] MEDS: CHLORHEXIDINE 0.12% (ORAL KIT) 15 ML CUP MT SCH ×2 (08:00→20:00)
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
[2018-01-20] MEDS: DOCUSATE SODIUM 50 MG/SENNA 8.6 MG TAB PO SCH ×2 (09:00→21:00)
[2018-01-20] MEDS: MAGNESIUM HYDROXIDE SUSP 30 ML CUP PO SCH ×2 (09:00→21:00)
[2018-01-20] MEDS: BISACODYL 10 MG SUPP RECTAL SCH (09:00)
[2018-01-20] MEDS: LACTULOSE SYRUP 20 GM/30 ML CUP PO SCH (09:00)
[2018-01-20] MEDS: ENOXAPARIN SODIUM 30 MG/0.3 ML SYRINGE SQ SCH (09:14)
[2018-01-20] MEDS: LEVOFLOXACIN 500 MG TAB PO SCH (09:16)
[2018-01-20] MEDS: LANSOPRAZOLE SOLUTAB 30 MG TAB NG SCH (09:20)
[2018-01-20] MEDS: BACITRACIN TOP OINT 15 GM TUBE TOP SCH ×2 (09:20→21:00)
[2018-01-20] MEDS ORDERED: GENTAMICIN SULFATE 80 MG/2 ML VIAL ONE (10:09)
[2018-01-20] MEDS ORDERED: LIDOCAINE 2% JELLY 30 ML TUBE ONE (11:00)
[2018-01-20] MEDS ORDERED: MINERAL OIL 10 ML VIAL ONE (11:00)
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
[2018-01-20] MEDS ORDERED: ceFAZolin INJ 1,000 MG VIAL IV ONE ×2 (12:00→12:19)
[2018-01-20] MEDS ORDERED: PROPOFOL 200 MG/20 ML AMP IV ONE (12:00)
[2018-01-20] MEDS ORDERED: LIDOCAINE HCL 1% PF 5 ML SYRINGE OTHER ONE (12:00)
[2018-01-20] MEDS ORDERED: ONDANSETRON HCL 4 MG/2 ML VIAL IV PUSH ONE (12:00)
[2018-01-20] MEDS ORDERED: SODIUM CHLOR 0.9% 250 ML INJ 250 ML IV ONE (12:00)
[2018-01-20] MEDS ORDERED: DEXAMETHASONE SOD PHOS 4 MG/ML VIAL IV ONE (12:00)
[2018-01-20] MEDS ORDERED: VANCOMYCIN HCL 1000 MG VIAL IV ONE (12:18)
--- NOTE | 2018-01-20 12:34 | PD.OP ---
cc: Romel Gaines MD Operative Report Date of Surgery: Jan 20, 2018 Preoperative Diagnosis: Right ankle medial malleolus fracture, open wound right wrist Postoperative Diagnosis: Procedure: Open reduction internal fixation right ankle medial malleolus, secondary closure right wrist wound Surgeon: Romel Gaines Oil Burner Repairer(s): JONN García PA-C The surgical procedure was assisted by my physician triage assistant. My P.A. presence was necessary throughout this case for the manipulation and positioning of the surgical extremity. My P.A. was assisting me throughout the duration of this procedure. The skill set of a physician triage assistant was medically necessary to complete this procedure. During the surgical case the surgical services assistant was working at the back table and the physician triage assistant was directly assisting me. Operation and Findings: Implants used :ITS 4. oh screw Patient was seen and evaluated preoperatively and found to have a displaced right ankle medial malleolus fracture. Patient also has an open wound on his right arm which has been treated with VAC dressing. Informed consent was obtained after a detailed discussion of risk and benefits of surgery. The operative site was marked. Patient was brought to the OR, placed on the OR table, and given IV sedation and general endotracheal anesthesia. IV antibiotics were given preoperatively. A timeout procedure was performed. The right arm and right leg were prepped with alcohol followed by Hibiclens and draped in the usual sterile fashion. Attention was turned towards the medial ankle. A 2 cm incision was made directly over the fracture site. Saphenous vein was retracted. Fracture was visualized. Fracture site was cleaned with curettes. Fracture was now manipulated and reduced. A guidepin for the 4.0 cannulated screws was placed in a retrograde fashion across the fracture site. Fluoroscopy confirmed appropriate guidepin placement. Cannulated drill was placed over the guidepin. Screw length was measured. An appropriate length screw was now placed over the guidepin. Fluoroscopy confirmed well aligned fracture with well-placed hardware. Next, attention was turned to the syndesmosis. The syndesmosis was stressed. There was no widening of the syndesmosis with external rotation of the ankle. Incisions were thoroughly irrigated. The subcutaneous tissue was closed with 3-0 PDS and the skin was closed with 3-0 nylon. Next attention was turned towards the right wrist. The traumatic laceration was visualized. Small areas of skin were debrided sharply with scalpel. The wound was now thoroughly irrigated. At this point attention was turned to closure. Patient's swelling had improved and there was more skin mobility. The skin edges were reapproximated with 2-0 nylon and 3-0 nylon. A combination of vertical mattress and retention sutures were utilized. The wound completely closed. Sterile dressings were applied. A well molded well-padded splint was applied. The patient was transferred to Recovery in stable condition. Needle and sponge counts were correct. Romel Gaines MD Jan 20, 2018 12:34
[2018-01-20] MEDS ORDERED: DO NOT ADM ANY ANTICOAGULANT DRUGS PRN (12:50)
[2018-01-20] MEDS: LACTATED RINGER'S 1000 ML INJ 1,000 ML IV SCH ×2 (13:30→23:01)
[2018-01-20] MEDS: HYDROmorphone HCL PF 2 MG/ML VIAL IV PUSH PRN ×2 (14:23→21:15)
--- NOTE | 2018-01-20 14:56 | RADRPT ---
EXAM DATE/TIME: 01/20/2018 12:16 [facility] COMPARISON: FLUOROSCOPY PORTABLE UP TO 1HR, January 20, 2018, 0:00. INDICATIONS : ORIF right ankle fracture. MEDICAL HISTORY : Unobtainable. SURGICAL HISTORY : Unobtainable. ENCOUNTER: Subsequent ACUITY: 2 weeks PAIN SCORE: Non-responsive. LOCATION: Right ankle. FINDINGS: The exam demonstrates interval placement of a screw across the patient's medial malleolus fracture. T here is excellent alignment post procedure. CONCLUSION: 1. Excellent alignment of the patient's medial malleolus fracture post procedure. Fidel Mendez MD on January 20, 2018 at 14:53 Board Certified Radiologist. This report was verified electronically.
[2018-01-20] MEDS ORDERED: ceFAZolin 2 GM PREMIX 50 ML IV SCH (20:00)
[2018-01-21] VITALS (7 sets, daily range): BP systolic 133–153; BP diastolic 63–77; PULSE 75–84; RESP 17–19; TEMP 96.4–97.9; O2SAT 91–100
[2018-01-21] MEDS: oxyCODONE HCL ORAL CONC 5 MG/0.25 ML SYRINGE PO SCH ×4 (04:07→21:34)
[2018-01-21] MEDS: METOCLOPRAMIDE HCL 10 MG/2 ML VIAL IV PUSH SCH ×3 (06:01→21:33)
[2018-01-21] MEDS: ARTIFICIAL TEARS OPTH SOLN 15 ML BTL EACH EYE SCH ×3 (06:02→21:37)
--- NOTE | 2018-01-21 07:27 | PD.ORT.PN ---
Subjective Subjective Remarks s/p ORIF right BBFA and Wrist with exfix and application of vac - POD 6 s/p Exfix of pubic symphysis - POD 7 s/p ORIF right medial malleolus - POD 1 doing well. pain controlled. Objective Vitals Vital Signs Date Time Temp Pulse Resp B/P (MAP) Pulse Ox O2 Delivery O2 Flow Rate FiO2 01/21/18 04:00 97.4 84 19 136/68 (90) 97 01/21/18 00:13 99 Trach Collar 01/21/18 00:00 96.4 78 17 133/67 (89) 97 01/20/18 21:35 98 Trach Collar 28 01/20/18 21:10 Trach Collar 3.00 28 01/20/18 20:00 96.6 81 18 142/66 (91) 100 01/20/18 16:00 96.0 70 20 142/67 (92) 99 01/20/18 13:55 88 16 140/70 (93) 97 Trach Collar 3 01/20/18 13:45 97.5 85 16 131/72 (91) 100 Trach Collar 4 01/20/18 13:30 84 16 138/74 (95) 98 Trach Collar 4 01/20/18 13:15 82 16 141/77 (98) 100 Trach Collar 5 01/20/18 13:00 84 16 136/75 (95) 99 Trach Collar 5 01/20/18 12:50 97.4 83 20 130/70 (90) 100 Trach Collar 6 01/20/18 09:15 Trach Collar 3.00 28 Humidified 01/20/18 08:00 97.0 74 18 139/63 (88) 99 I/O 01/20/18 01/20/18 01/20/18 01/21/18 01/21/18 01/21/18 07:00 15:00 23:00 07:00 15:00 23:00 Intake Total 0 ml 700 ml 1400 ml 1050 ml Output Total 45 ml 1450 ml Balance 0 ml 655 ml -50 ml 1050 ml Intake Oral 0 ml 1400 ml IV Total 600 ml Tube Feeding 350 ml Tube Irrigant 100 ml Other 700 ml Output Urine Total 1450 ml Drainage Total 35 ml Estimated Blood Loss 10 ml # Voids 0 0 2 # Bowel Movements 0 0 Result Diagram: 01/20/18 0545 01/20/18 0545 Imaging Last 24 hours Impressions Chest X-Ray 01/08/18 0600 Signed Impressions: Service Date/Time: Monday, January 08, 2018 05:11 - CONCLUSION: Stable chest x-ray. No pneumothorax or acute pulmonary abnormality is seen. Esequiel García MD Pelvis X-Ray 01/07/18750 Signed Impressions: Service Date/Time: Sunday, January 07, 2018 07:47 - CONCLUSION: 1. Diastasis of the pubic symphysis with widened left SI joint. 2. Questionable subtle nondisplaced fractures of the right inferior pubic ramus and lesser trochanter of the right femur. Saroj Carrillo MD Maxillofacial CT 01/07/18750 Signed Impressions: Service Date/Time: Sunday, January 07, 2018 08:24 - CONCLUSION: Multiple severely comminuted facial fractures as described above. Lencho Dominguez MD Head CT 01/07/18750 Signed Impressions: Service Date/Time: Sunday, January 07, 2018 08:24 - CONCLUSION: 1. No focal or acute intracranial hemorrhage. 2. Multiple comminuted facial fractures. Lencho Dominguez MD Chest X-Ray 01/07/18750 Signed Impressions: Service Date/Time: Sunday, January 07, 2018 07:47 - CONCLUSION: 1. Increased lucency near the left lung base, likely artifactual, although a small left subpulmonic pneumothorax cannot be entirely excluded. Saroj Carrillo MD Chest CT 01/07/18750 Signed Impressions: Service Date/Time: Sunday, January 07, 2018 08:24 - CONCLUSION: 1. Minimal bibasilar airspace disease, more prominently on the right. Differential considerations include pulmonary contusions versus atelectasis. 2. Subtle cortical step-off in the inferior scapula. Suspect this reflects an old injury. Correlation with physical exam and history is recommended. Saroj Carrillo MD Cervical Spine CT 01/07/18750 Signed Impressions: Service Date/Time: Sunday, January 07, 2018 08:24 - CONCLUSION: 1. No acute fracture or subluxation. Saroj Carrillo MD Abdomen/Pelvis CT 01/07/18 0751 Signed Impressions: Service Date/Time: Sunday, January 07, 2018 08:24 - CONCLUSION: 1. Small focal nonspecific defect in the superior lateral spleen. This may just be flow artifact. Small splenic laceration would be a second possibility. However, there is no fluid surrounding the spleen and there is no fluid in the abdomen or pelvic. 2. There is some diastases of the pubic symphysis. There is a fracture involving the anterior portion of the right acetabulum with the fracture line extending into the right ischium. There is also a fracture involving the right inferior pubic ramus. 3. There is a hematoma along the anterior lateral aspect of urinary bladder which is most likely related to the pelvic fractures. Lencho Dominguez MD Objective Remarks Right upper extremity: exfix in place. pin sites clean. no drainage. decreased sensation to median/ulnar nerve. +sensation to radial nerve. Left upper extremity: No laxity with shoulder elbow or wrist. Distally capillary refills and good distal pulses Bilateral lower extremities: No laxity with hip knee or ankles bilaterally. Distally intact distal pulses. pelvic exfix in place. pin site clean and dry. RLE has short leg splint that is intact Assessment & Plan Assessment and Plan 1) Severely comminuted right distal radius open fracture with dislocation of distal radial ulnar joint s/p I&D with ORIF and exfix application - POD 7 2) s/p disruption of pubic symphysis s/p application of exfix - POD 7 3) s/p right elbow injury 4) Right Medial Malleolus Fx s/p ORIF - POD 1 Maintain exfix to right wrist and pelvis pin care BID NWB to BLE and RUE maintain splint to right ankle at all times DC planning to rehab ortho surgeries complete f/u with Margaux or PA in 2 weeks Andry Marquez/First Vickie SPARKS Jan 21, 2018 07:27
[2018-01-21] MEDS ORDERED: LEVA500T33 PO (07:51)
[2018-01-21] MEDS: CHLORHEXIDINE 0.12% (ORAL KIT) 15 ML CUP MT SCH ×2 (08:00→21:32)
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
[2018-01-21] MEDS: LANSOPRAZOLE SOLUTAB 30 MG TAB NG SCH (08:48)
[2018-01-21] MEDS: DOCUSATE SODIUM 50 MG/SENNA 8.6 MG TAB PO SCH ×2 (08:48→21:37)
[2018-01-21] MEDS: LACTULOSE SYRUP 20 GM/30 ML CUP PO SCH (08:49)
[2018-01-21] MEDS: LEVOFLOXACIN 500 MG TAB PO SCH (08:49)
[2018-01-21] MEDS: MAGNESIUM HYDROXIDE SUSP 30 ML CUP PO SCH ×2 (08:49→21:00)
[2018-01-21] MEDS: BISACODYL 10 MG SUPP RECTAL SCH (08:53)
[2018-01-21 09:24] LABS: AUTOMATED NEUTROPHIL # 6.9 TH/MM3 (1.8-7.7); BASOPHIL % 0.2 % (0.0-2.0); EOSINOPHIL # 0.1 TH/MM3 (0-0.4); EOSINOPHIL % 0.8 % (0.0-4.0); HEMATOCRIT 32.6 % (39.0-51.0); HEMOGLOBIN 10.7 GM/DL (13.0-17.0); LYMPHOCYTE # 1.2 TH/MM3 (1.0-4.8); MEAN CELL VOLUME 95.2 FL (80.0-100.0); MEAN CORPUSCULAR HEMOGLOBIN 31.1 PG (27.0-34.0); MEAN CORPUSCULAR HGB CONC 32.7 % (32.0-36.0); MEAN PLATELET VOLUME 7.8 FL (7.0-11.0); MONO % 13.6 % (0.0-8.0); MONOCYTE # 1.3 TH/MM3 (0-0.9); NEUT % 72.4 % (16.0-70.0); PLATELET COUNT 472 TH/MM3 (150-450); RED BLOOD COUNT 3.43 MIL/MM3 (4.50-5.90); RED CELL DISTRIBUTION WIDTH 17.5 % (11.6-17.2); WHITE BLOOD COUNT 9.5 TH/MM3 (4.0-11.0)
[2018-01-21] MEDS: BACITRACIN TOP OINT 15 GM TUBE TOP SCH ×2 (09:24→21:37)
[2018-01-21] MEDS: LACTATED RINGER'S 1000 ML INJ 1,000 ML IV SCH ×2 (09:33→17:30)
[2018-01-21 09:43] LABS: BICARBONATE 28.7 MEQ/L (21.0-32.0); CALCIUM 8.3 MG/DL (8.5-10.1); CREATININE 0.59 MG/DL (0.60-1.30)
[2018-01-21 10:04] LABS: BASOPHILS 1 % (0-2); CORRECTED NUCLEATED RBC 1 /100 WBC (0-0); LYMPHOCYTES 11 % (9-44); MONOCYTES 5 % (0-8); NEUTROPHIL # MANUAL DIFF 7.8 TH/MM3 (1.8-7.7); NUCLEATED RED BLOOD CELL 1 (0-0); POLYS (SEG NEUTROPHILS) 82 % (16-70)
[2018-01-21] MEDS: ENOXAPARIN SODIUM 30 MG/0.3 ML SYRINGE SQ SCH (13:16)
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
[2018-01-22] VITALS (11 sets, daily range): BP systolic 126–161; BP diastolic 59–85; PULSE 71–90; RESP 16–18; TEMP 96.2–96.9; O2SAT 90–98
[2018-01-22] MEDS: ENOXAPARIN SODIUM 30 MG/0.3 ML SYRINGE SQ SCH ×2 (00:59→12:46)
[2018-01-22] MEDS: LACTATED RINGER'S 1000 ML INJ 1,000 ML IV SCH ×2 (04:27→14:27)
[2018-01-22] MEDS: oxyCODONE HCL ORAL CONC 5 MG/0.25 ML SYRINGE PO SCH ×4 (04:39→22:10)
[2018-01-22] MEDS: METOCLOPRAMIDE HCL 10 MG/2 ML VIAL IV PUSH SCH ×3 (04:39→22:10)
[2018-01-22] MEDS: ARTIFICIAL TEARS OPTH SOLN 15 ML BTL EACH EYE SCH ×3 (04:43→22:00)
--- NOTE | 2018-01-22 07:18 | PD.ORT.PN ---
Subjective Subjective Remarks s/p ORIF right BBFA and Wrist with exfix and application of vac - POD 8 s/p Exfix of pubic symphysis - POD 8 s/p ORIF right medial malleolus - POD 2 doing well. pain controlled. Objective Vitals Vital Signs Date Time Temp Pulse Resp B/P (MAP) Pulse Ox O2 Delivery O2 Flow Rate FiO2 01/22/18 04:00 96.9 75 18 126/59 (81) 96 01/22/18 00:00 96.6 71 18 129/61 (83) 90 01/21/18 21:04 Trach Collar 5.00 28 01/21/18 20:00 97.4 76 18 135/63 (87) 91 01/21/18 16:55 18 01/21/18 16:00 79 01/21/18 16:00 97.1 75 18 149/70 (96) 99 01/21/18 12:00 97.7 82 18 153/75 (101) 100 01/21/18 08:40 100 Trach Collar 5.00 28 Humidified 01/21/18 08:00 97.9 75 18 149/77 (101) 100 I/O 01/21/18 01/21/18 01/21/18 01/22/18 01/22/18 01/22/18 07:00 15:00 23:00 07:00 15:00 23:00 Intake Total 1050 ml 420 ml 50 ml Output Total 300 ml 750 ml 1230 ml Balance 1050 ml -300 ml -330 ml -1180 ml Intake Oral 420 ml IV Total 600 ml 50 ml Tube Feeding 350 ml Tube Irrigant 100 ml Output Urine Total 300 ml 750 ml 1230 ml Tube Feeding Residual Discard 0 ml # Voids 2 # Bowel Movements 1 Result Diagram: 01/21/18 0817 01/21/18 0817 Imaging Last 24 hours Impressions Chest X-Ray 01/08/18 0600 Signed Impressions: Service Date/Time: Monday, January 08, 2018 05:11 - CONCLUSION: Stable chest x-ray. No pneumothorax or acute pulmonary abnormality is seen. Esequiel García MD Pelvis X-Ray 01/07/18 0751 Signed Impressions: Service Date/Time: Sunday, January 07, 2018 07:47 - CONCLUSION: 1. Diastasis of the pubic symphysis with widened left SI joint. 2. Questionable subtle nondisplaced fractures of the right inferior pubic ramus and lesser trochanter of the right femur. Saroj Carrillo MD Maxillofacial CT 01/07/18750 Signed Impressions: Service Date/Time: Sunday, January 07, 2018 08:24 - CONCLUSION: Multiple severely comminuted facial fractures as described above. Lencho Dominguez MD Head CT 01/07/18750 Signed Impressions: Service Date/Time: Sunday, January 07, 2018 08:24 - CONCLUSION: 1. No focal or acute intracranial hemorrhage. 2. Multiple comminuted facial fractures. Lencho Dominguez MD Chest X-Ray 01/07/18750 Signed Impressions: Service Date/Time: Sunday, January 07, 2018 07:47 - CONCLUSION: 1. Increased lucency near the left lung base, likely artifactual, although a small left subpulmonic pneumothorax cannot be entirely excluded. Saroj Carrillo MD Chest CT 01/07/18750 Signed Impressions: Service Date/Time: Sunday, January 07, 2018 08:24 - CONCLUSION: 1. Minimal bibasilar airspace disease, more prominently on the right. Differential considerations include pulmonary contusions versus atelectasis. 2. Subtle cortical step-off in the inferior scapula. Suspect this reflects an old injury. Correlation with physical exam and history is recommended. Saroj Carrillo MD Cervical Spine CT 01/07/18750 Signed Impressions: Service Date/Time: Sunday, January 07, 2018 08:24 - CONCLUSION: 1. No acute fracture or subluxation. Saroj Carrillo MD Abdomen/Pelvis CT 01/07/18750 Signed Impressions: Service Date/Time: Sunday, January 07, 2018 08:24 - CONCLUSION: 1. Small focal nonspecific defect in the superior lateral spleen. This may just be flow artifact. Small splenic laceration would be a second possibility. However, there is no fluid surrounding the spleen and there is no fluid in the abdomen or pelvic. 2. There is some diastases of the pubic symphysis. There is a fracture involving the anterior portion of the right acetabulum with the fracture line extending into the right ischium. There is also a fracture involving the right inferior pubic ramus. 3. There is a hematoma along the anterior lateral aspect of urinary bladder which is most likely related to the pelvic fractures. Lencho Dominguez MD Objective Remarks Right upper extremity: exfix in place. pin sites clean. no drainage. decreased sensation to median/ulnar nerve. +sensation to radial nerve. Left upper extremity: No laxity with shoulder elbow or wrist. Distally capillary refills and good distal pulses Bilateral lower extremities: No laxity with hip knee or ankles bilaterally. Distally intact distal pulses. pelvic exfix in place. pin site clean and dry. RLE has short leg splint that is intact Assessment & Plan Assessment and Plan 1) Severely comminuted right distal radius open fracture with dislocation of distal radial ulnar joint s/p I&D with ORIF and exfix application - POD 8 2) s/p disruption of pubic symphysis s/p application of exfix - POD 8 3) s/p right elbow injury 4) Right Medial Malleolus Fx s/p ORIF - POD 2 Maintain exfix to right wrist and pelvis pin care BID NWB to BLE and RUE maintain splint to right ankle at all times DC planning to rehab ortho surgeries complete f/u with Margaux or PA in 2 weeks Andry Marquez/First Vickie SPARKS Jan 22, 2018 07:18
[2018-01-22] MEDS: CHLORHEXIDINE 0.12% (ORAL KIT) 15 ML CUP MT SCH ×2 (08:00→20:00)
[2018-01-22] MEDS: LACTULOSE SYRUP 20 GM/30 ML CUP PO SCH (08:59)
[2018-01-22] MEDS: MAGNESIUM HYDROXIDE SUSP 30 ML CUP PO SCH ×2 (08:59→19:59)
[2018-01-22] MEDS: BISACODYL 10 MG SUPP RECTAL SCH (09:00)
[2018-01-22] MEDS: BACITRACIN TOP OINT 15 GM TUBE TOP SCH ×2 (09:01→20:00)
[2018-01-22] MEDS: LANSOPRAZOLE SOLUTAB 30 MG TAB NG SCH (09:02)
[2018-01-22] MEDS: DOCUSATE SODIUM 50 MG/SENNA 8.6 MG TAB PO SCH ×2 (09:02→19:54)
[2018-01-22] MEDS: LEVOFLOXACIN 500 MG TAB PO SCH (09:02)
[2018-01-22] MEDS: ONDANSETRON HCL 4 MG/2 ML VIAL IV PUSH PRN (10:17)
[2018-01-22] MEDS: HYDROmorphone HCL PF 2 MG/ML VIAL IV PUSH PRN (10:45)
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
[2018-01-22] MEDS: REMOVE OLD DURAGESIC (FENTANYL) PATCH T-DERMAL SCH (14:00)
[2018-01-22] MEDS: fentaNYL 50 MCG/HR PATCH T-DERMAL SCH (14:41)
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
[2018-01-23] VITALS (7 sets, daily range): BP systolic 122–141; BP diastolic 58–89; PULSE 70–80; RESP 17–19; TEMP 95.4–96.1; O2SAT 97–99
[2018-01-23] MEDS: LACTATED RINGER'S 1000 ML INJ 1,000 ML IV SCH ×2 (00:27→09:24)
[2018-01-23] MEDS: ENOXAPARIN SODIUM 30 MG/0.3 ML SYRINGE SQ SCH ×2 (01:56→14:30)
[2018-01-23] MEDS: METOCLOPRAMIDE HCL 10 MG/2 ML VIAL IV PUSH SCH ×2 (04:32→14:00)
[2018-01-23] MEDS: ARTIFICIAL TEARS OPTH SOLN 15 ML BTL EACH EYE SCH ×2 (04:32→14:00)
[2018-01-23] MEDS: oxyCODONE HCL ORAL CONC 5 MG/0.25 ML SYRINGE PO SCH ×3 (04:33→15:48)
--- NOTE | 2018-01-23 07:02 | PD.ORT.PN ---
Subjective Subjective Remarks s/p ORIF right BBFA and Wrist with exfix and application of vac - POD 9 s/p Exfix of pubic symphysis - POD 9 s/p ORIF right medial malleolus - POD 2 doing well. pain controlled. Objective Vitals Vital Signs Date Time Temp Pulse Resp B/P (MAP) Pulse Ox O2 Delivery O2 Flow Rate FiO2 01/23/18 04:00 76 18 125/58 (80) 97 01/23/18 00:25 98 Trach Collar 5.00 28 01/23/18 00:23 20 01/23/18 00:00 80 18 128/62 (84) 99 01/22/18 21:23 98 21 01/22/18 21:00 77 01/22/18 21:00 Room Air Trach Collar 01/22/18 20:00 86 18 138/70 (92) 93 01/22/18 17:03 90 01/22/18 16:00 96.5 77 16 156/75 (102) 97 01/22/18 15:41 18 01/22/18 12:00 96.4 85 17 161/85 (110) 94 01/22/18 11:15 18 01/22/18 10:18 95 21 01/22/18 08:40 98 Trach Collar 5.00 28 T-Piece 01/22/18 08:40 81 01/22/18 08:00 96.2 74 18 143/72 (95) 98 I/O 01/22/18 01/22/18 01/22/18 01/23/18 01/23/18 01/23/18 07:00 15:00 23:00 07:00 15:00 23:00 Intake Total 50 ml 575 ml 240 ml Output Total 1230 ml 0 ml 1250 ml Balance -1180 ml 0 ml -675 ml 240 ml Intake Oral 575 ml 240 ml IV Total 50 ml Output Urine Total 1230 ml 1250 ml Tube Feeding Residual Discard 0 ml # Bowel Movements 1 Result Diagram: 01/21/18 0817 01/21/18 0817 Imaging Last 24 hours Impressions Chest X-Ray 01/08/18 0600 Signed Impressions: Service Date/Time: Monday, January 08, 2018 05:11 - CONCLUSION: Stable chest x-ray. No pneumothorax or acute pulmonary abnormality is seen. Esequiel García MD Pelvis X-Ray 01/07/18750 Signed Impressions: Service Date/Time: Sunday, January 07, 2018 07:47 - CONCLUSION: 1. Diastasis of the pubic symphysis with widened left SI joint. 2. Questionable subtle nondisplaced fractures of the right inferior pubic ramus and lesser trochanter of the right femur. Saroj Carrillo MD Maxillofacial CT 01/07/18750 Signed Impressions: Service Date/Time: Sunday, January 07, 2018 08:24 - CONCLUSION: Multiple severely comminuted facial fractures as described above. Lencho Dominguez MD Head CT 01/07/18750 Signed Impressions: Service Date/Time: Sunday, January 07, 2018 08:24 - CONCLUSION: 1. No focal or acute intracranial hemorrhage. 2. Multiple comminuted facial fractures. Lencho Dominguez MD Chest X-Ray 01/07/18750 Signed Impressions: Service Date/Time: Sunday, January 07, 2018 07:47 - CONCLUSION: 1. Increased lucency near the left lung base, likely artifactual, although a small left subpulmonic pneumothorax cannot be entirely excluded. Saroj Carrillo MD Chest CT 01/07/18750 Signed Impressions: Service Date/Time: Sunday, January 07, 2018 08:24 - CONCLUSION: 1. Minimal bibasilar airspace disease, more prominently on the right. Differential considerations include pulmonary contusions versus atelectasis. 2. Subtle cortical step-off in the inferior scapula. Suspect this reflects an old injury. Correlation with physical exam and history is recommended. Saroj Carrillo MD Cervical Spine CT 01/07/18750 Signed Impressions: Service Date/Time: Sunday, January 07, 2018 08:24 - CONCLUSION: 1. No acute fracture or subluxation. Saroj Carrillo MD Abdomen/Pelvis CT 01/07/18750 Signed Impressions: Service Date/Time: Sunday, January 07, 2018 08:24 - CONCLUSION: 1. Small focal nonspecific defect in the superior lateral spleen. This may just be flow artifact. Small splenic laceration would be a second possibility. However, there is no fluid surrounding the spleen and there is no fluid in the abdomen or pelvic. 2. There is some diastases of the pubic symphysis. There is a fracture involving the anterior portion of the right acetabulum with the fracture line extending into the right ischium. There is also a fracture involving the right inferior pubic ramus. 3. There is a hematoma along the anterior lateral aspect of urinary bladder which is most likely related to the pelvic fractures. Lencho Dominguez MD Objective Remarks Right upper extremity: exfix in place. pin sites clean. no drainage. decreased sensation to median/ulnar nerve. +sensation to radial nerve. Left upper extremity: No laxity with shoulder elbow or wrist. Distally capillary refills and good distal pulses Bilateral lower extremities: No laxity with hip knee or ankles bilaterally. Distally intact distal pulses. pelvic exfix in place. pin site clean and dry. RLE has short leg splint that is intact Assessment & Plan Assessment and Plan 1) Severely comminuted right distal radius open fracture with dislocation of distal radial ulnar joint s/p I&D with ORIF and exfix application - POD 9 2) s/p disruption of pubic symphysis s/p application of exfix - POD 9 3) s/p right elbow injury 4) Right Medial Malleolus Fx s/p ORIF - POD 3 Maintain exfix to right wrist and pelvis pin care BID NWB to BLE and RUE maintain splint to right ankle at all times DC planning to rehab ortho surgeries complete f/u with Margaux or [facility] in 2 weeks Andry Marquez/Lpta PA Jan 23, 2018 07:02
[2018-01-23] MEDS: CHLORHEXIDINE 0.12% (ORAL KIT) 15 ML CUP MT SCH (08:00)
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
[2018-01-23] MEDS: BISACODYL 10 MG SUPP RECTAL SCH (09:00)
[2018-01-23] MEDS: MAGNESIUM HYDROXIDE SUSP 30 ML CUP PO SCH (09:00)
[2018-01-23] MEDS: DOCUSATE SODIUM 50 MG/SENNA 8.6 MG TAB PO SCH (09:22)
[2018-01-23] MEDS: LACTULOSE SYRUP 20 GM/30 ML CUP PO SCH (09:22)
[2018-01-23] MEDS: LEVOFLOXACIN 500 MG TAB PO SCH (09:23)
[2018-01-23] MEDS: BACITRACIN TOP OINT 15 GM TUBE TOP SCH (09:23)
[2018-01-23] MEDS: LANSOPRAZOLE SOLUTAB 30 MG TAB NG SCH (09:24)
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
== END 2018-01-23 17:24 | DRG 3 ==
LOC: NEPI 07:47 → EDBD 08:32 → NEDA 08:32 → N03A 08:49 → N07A 01-16 19:07 → HIMN 01-19 12:00 → N07A 01-19 12:15
PROVIDERS: ADMIT Surgery; ATTEND Surgery
PROC: 5A1955Z Respiratory Ventilation, Greater than 96 Consecutive Hours (ICD-10-PCS; 2018-01-07)
PROC: 03HY32Z Insertion of Monitoring Device into Upper Artery, Percutaneous Approach (ICD-10-PCS; 2018-01-07)
PROC: 0BH17EZ Insertion of Endotracheal Airway into Trachea, Via Natural or Artificial Opening (ICD-10-PCS; 2018-01-07)
PROC: 0W9B30Z Drainage of Left Pleural Cavity with Drainage Device, Percutaneous Approach (ICD-10-PCS; 2018-01-07)
PROC: 02HV33Z Insertion of Infusion Device into Superior Vena Cava, Percutaneous Approach (ICD-10-PCS; 2018-01-07)
PROC: 30233R1 Transfusion of Nonautologous Platelets into Peripheral Vein, Percutaneous Approach (ICD-10-PCS; 2018-01-07)
PROC: 30233N1 Transfusion of Nonautologous Red Blood Cells into Peripheral Vein, Percutaneous Approach (ICD-10-PCS; 2018-01-07)
PROC: 30233K1 Transfusion of Nonautologous Frozen Plasma into Peripheral Vein, Percutaneous Approach (ICD-10-PCS; 2018-01-07)
PROC: 0JBG0ZZ Excision of Right Lower Arm Subcutaneous Tissue and Fascia, Open Approach (ICD-10-PCS; 2018-01-08)
PROC: 0PSK35Z Reposition Right Ulna with External Fixation Device, Percutaneous Approach (ICD-10-PCS; 2018-01-08)
PROC: 0PSH35Z Reposition Right Radius with External Fixation Device, Percutaneous Approach (ICD-10-PCS; principal; 2018-01-08 11:11)
PROC: 0NST04Z Reposition Right Mandible with Internal Fixation Device, Open Approach (ICD-10-PCS; 2018-01-09)
PROC: 0NSQ04Z Reposition Left Orbit with Internal Fixation Device, Open Approach (ICD-10-PCS; 2018-01-09)
PROC: 0NSP04Z Reposition Right Orbit with Internal Fixation Device, Open Approach (ICD-10-PCS; 2018-01-09)
PROC: 0NUR0JZ Supplement Maxilla with Synthetic Substitute, Open Approach (ICD-10-PCS; 2018-01-09)
PROC: 0NSBXZZ Reposition Nasal Bone, External Approach (ICD-10-PCS; 2018-01-09)
PROC: 0CDWXZ1 Extraction of Upper Tooth, Multiple, External Approach (ICD-10-PCS; 2018-01-09)
PROC: 0HQ1XZZ Repair Face Skin, External Approach (ICD-10-PCS; 2018-01-09)
PROC: 0DJ08ZZ Inspection of Upper Intestinal Tract, Via Natural or Artificial Opening Endoscopic (ICD-10-PCS; 2018-01-09)
PROC: 0BJ08ZZ Inspection of Tracheobronchial Tree, Via Natural or Artificial Opening Endoscopic (ICD-10-PCS; 2018-01-09)
PROC: 0B113F4 Bypass Trachea to Cutaneous with Tracheostomy Device, Percutaneous Approach (ICD-10-PCS; 2018-01-09 15:27)
PROC: 0DH63UZ Insertion of Feeding Device into Stomach, Percutaneous Approach (ICD-10-PCS; 2018-01-10)
PROC: 0QS335Z Reposition Left Pelvic Bone with External Fixation Device, Percutaneous Approach (ICD-10-PCS; 2018-01-14)
PROC: 0QS235Z Reposition Right Pelvic Bone with External Fixation Device, Percutaneous Approach (ICD-10-PCS; 2018-01-14)
PROC: 0PSH04Z Reposition Right Radius with Internal Fixation Device, Open Approach (ICD-10-PCS; 2018-01-14)
PROC: 0QSG04Z Reposition Right Tibia with Internal Fixation Device, Open Approach (ICD-10-PCS; 2018-01-20)
PROC: 0HDDXZZ Extraction of Right Lower Arm Skin, External Approach (ICD-10-PCS; 2018-01-20)
DX: S52.351B Displaced comminuted fracture of shaft of radius, right arm, initial encounter for open fracture type I or II (principal); I46.9 Cardiac arrest, cause unspecified; S27.1XXA Traumatic hemothorax, initial encounter; J13 Pneumonia due to Streptococcus pneumoniae; N17.9 Acute kidney failure, unspecified; R57.1 Hypovolemic shock; R57.8 Other shock; S27.2XXA Traumatic hemopneumothorax, initial encounter; D68.9 Coagulation defect, unspecified; S32.401A Unspecified fracture of right acetabulum, initial encounter for closed fracture; J96.00 Acute respiratory failure, unspecified whether with hypoxia or hypercapnia; E87.4 Mixed disorder of acid-base balance; S02.66XA Fracture of symphysis of mandible, initial encounter for closed fracture; D62 Acute posthemorrhagic anemia; S02.412A LeFort II fracture, initial encounter for closed fracture; S02.40EA Zygomatic fracture, right side, initial encounter for closed fracture; S02.40FA Zygomatic fracture, left side, initial encounter for closed fracture; S02.42XA Fracture of alveolus of maxilla, initial encounter for closed fracture; S02.31XA Fracture of orbital floor, right side, initial encounter for closed fracture; S36.039A Unspecified laceration of spleen, initial encounter; S32.591A Other specified fracture of right pubis, initial encounter for closed fracture; S06.0X9A Concussion with loss of consciousness of unspecified duration, initial encounter; K56.7 Ileus, unspecified; F02.81 Dementia in other diseases classified elsewhere, unspecified severity, with behavioral disturbance; S02.611A Fracture of condylar process of right mandible, initial encounter for closed fracture; S02.612A Fracture of condylar process of left mandible, initial encounter for closed fracture; Z99.11 Dependence on respirator [ventilator] status; S52.611A Displaced fracture of right ulna styloid process, initial encounter for closed fracture; S33.4XXA Traumatic rupture of symphysis pubis, initial encounter; S30.1XXA Contusion of abdominal wall, initial encounter; S01.81XA Laceration without foreign body of other part of head, initial encounter; S82.51XA Displaced fracture of medial malleolus of right tibia, initial encounter for closed fracture; R73.9 Hyperglycemia, unspecified; D69.6 Thrombocytopenia, unspecified; K25.9 Gastric ulcer, unspecified as acute or chronic, without hemorrhage or perforation; S52.501B Unspecified fracture of the lower end of right radius, initial encounter for open fracture type I or II; K08.89 Other specified disorders of teeth and supporting structures; S02.2XXA Fracture of nasal bones, initial encounter for closed fracture; E87.6 Hypokalemia; E83.42 Hypomagnesemia; E83.51 Hypocalcemia; M25.461 Effusion, right knee; V23.4XXA Motorcycle driver injured in collision with car, pick-up truck or van in traffic accident, initial encounter; Y92.410 Unspecified street and highway as the place of occurrence of the external cause
CPT/HCPCS: 25565; 31500; 36430; 36556; 49440; 70450; 70486; 70498; 71045; 71260; 72125; 72170; 73080; 73090; 73100; 73200; 73564; 73600; 73610; 74018; 74176; 74177; 76000; 76377; 76937; 80048; 80053; 80076; 80202; 81001; 82150; 82805; 83605; 83690; 83735; 84100; 84155; 84484; 85007; 85014; 85018; 85025; 85027; 85384; 85610; 85730; 86850; 86900; 86901; 86920; 86927; 87015; 87040; 87070; 87077; 87116; 87186; 87205; 87206; 90471; 90715; 93005; 93306; 93970; 94002; 94003; 94640; 94664; 94762; 96374; 96375; 99291; 99292; C1713; C9113; G0390; J0131; J0610; J0690; J0692; J1100; J1170; J1580; J1644; J1650; J2175; J2250; J2270; J2370; J2405; J2550; J2710; J2765; J2930; J3010; J3370; J3475; J3480; J7030; J7040; J7050; J7120; L0150; L0172; L8699; P9016; P9017; P9035; P9045; Q9963; Q9967